=== PATIENT | female | born 1955 | race Caucasian/White ===

== ENCOUNTER 2017-01-19 11:04 | Emergency (ER) | payer OTHER ==
[~2017-01-19] VITALS: Ht 167.6 cm; Wt 51.7 kg
[~2017-01-19 11:04] MED LIST: PRILOSEC20 MG PO; ZOFRAN ODT4 MG PO
[2017-01-19] MEDS ORDERED: PERCOCET 2.5-31 EACH PO (15:54)
[2017-01-23] MEDS ORDERED: CIPRO500 MG PO (15:15)
== END 2017-01-19 16:05 | disposition home or self-care (01) ==
LOC: ED 11:04
DX: B34.9 Viral infection, unspecified (principal); B09 Unspecified viral infection characterized by skin and mucous membrane lesions; F17.200 Nicotine dependence, unspecified, uncomplicated; Z90.710 Acquired absence of both cervix and uterus; Z88.2 Allergy status to sulfonamides; Z88.8 Allergy status to other drugs, medicaments and biological substances; Z88.1 Allergy status to other antibiotic agents; Z88.0 Allergy status to penicillin; Z79.899 Other long term (current) drug therapy
CPT/HCPCS: 70450; 71020; 80053; 81001; 85025; 85651; 96361; 96374; 96375; 99284; J1170; J1200; J1885; J2765; J7030

== ENCOUNTER 2017-01-26 11:55 | Emergency (ER) | payer OTHER ==
[~2017-01-26] VITALS: Ht 167.6 cm; Wt 51.7 kg
[~2017-01-26 11:55] MED LIST changes: +CIPRO500 MG PO; +PERCOCET 2.5-31 EACH PO
== END 2017-01-26 15:35 | disposition short-term general hospital (02) ==
LOC: ED 11:55
PROC: 009U3ZX Drainage of Spinal Canal, Percutaneous Approach, Diagnostic (ICD-10-PCS; principal; 2017-01-26)
DX: R51 Headache (principal); R21 Rash and other nonspecific skin eruption; M79.1 Myalgia; F17.200 Nicotine dependence, unspecified, uncomplicated; Z90.710 Acquired absence of both cervix and uterus; Z88.8 Allergy status to other drugs, medicaments and biological substances; Z88.0 Allergy status to penicillin; Z88.1 Allergy status to other antibiotic agents; Z88.2 Allergy status to sulfonamides; Z79.2 Long term (current) use of antibiotics
CPT/HCPCS: 62270; 80053; 81001; 82945; 83690; 84157; 85025; 85032; 89051; 96361; 96374; 96375; 99285; J1170; J2060; J2250; J2405; J7030

== ENCOUNTER 2019-04-23 07:48 | Day surgery (SDC) | payer OTHER ==
[~2019-04-23] VITALS: Ht 167.6 cm; Wt 47.2 kg
[2019-04-23] MEDS ORDERED: VIT D-3 PO (08:07)
--- NOTE | 2019-04-23 09:47 | NUR ---
PT ALERT, ORIENTED AND SUPPORTED BY HER . PT WAS EMOTIONAL AND SHARED WITH ME SHE HAS A DIFFICULT TIME WAKING UP FOLLOWING SURGERY. EXPLAINED THE ORDER OF EVENTS FOR TODAY, GAVE ENXCOURAGEMENT AND HAD PRAYER WITH PT. WILL FOLLOW NEEDED
--- NOTE | 2019-04-23 09:59 | NUR ---
04/23/19 0959 Catrachita Feliz 0956- PT TO PACU IN LL POSITION EYES CLOSED. AWAKENS TO VOICE AND TACTILE STIMULATION. BREATHING EASY AND UNLABORED. ARRIVED ON 3 L O2 VIA NC SP02 >95%.
--- NOTE | 2019-04-23 11:15 | OR ---
[facility] [address], [place] [address] Signed DATE OF OPERATION: 04/23/2019 SURGEON: Natasha Underwood MD PREOPERATIVE DIAGNOSES: 1. Anorexia, early satiety, heartburn. 2. Weight loss. 3. Diarrhea for two years. 4. Gastric thickening on abdominal ultrasound. POSTOPERATIVE DIAGNOSES: 1. Diffuse moderate gastritis. 2. A small hiatal hernia. 3. 5 mm polyp at 65 cm. 4. Small internal and external hemorrhoids. 5. Minimal sigmoid diverticulosis. 6. Possible mild melanosis coli. PROCEDURES: 1. EGD with CLOtest and biopsies of the duodenum, pyloric bulb, antrum, body, and GE junction. 2. Colonoscopy with hot biopsy and random cold biopsies. ESTIMATED BLOOD LOSS: None. INDICATIONS: Brian is a 63-year-old female, asked to see me for upper and lower endoscopy. She has had a lot of trouble with heartburn, anorexia, early satiety and weight loss. She has had diarrhea for about 2 years. Because of her claustrophobia, she could not undergo her CT scan of the chest, abdomen and pelvis. She had been a long-time smoker and does do some intermittent drinking. She also uses marijuana. Apparently, she had 10 beers just four days ago on Monday. She has been on Prilosec 20 mg p.o. daily. She ended up with an ultrasound of the abdomen, which showed the stomach was quite thickened, but the liver and gallbladder were all fine. She gives no family history of colon cancer or polyps or inflammatory bowel disease. Her erythrocyte sedimentation rate and CRP were normal. Ammonia was just a little high at 44. INR was normal at 0.9. Hemoglobin a little high at 16.8, most likely from her smoking. The alpha fetoprotein was normal at 4.47. She denied history of hepatitis C today. In the office, I gave her pamphlets on both upper and lower endoscopy. We reviewed that together along with the risks Electronically Signed By: NATASHA UNDERWOOD MD 04/23/19 1115 PATIENT NAME: BRIAN WEAVER OPERATIVE REPORT DATE OF : 53 REPORT #: [id number] PHYSICIAN: NATASHA UNDERWOOD MD PCP: RUBEN ODELL MD REPORT IS CONFIDENTIAL AND NOT TO BE RELEASED WITHOUT AUTHORIZATION [facility] [address], [place] [address] Signed including, but not limited to gas, bloating, crampy abdominal pain, bleeding, perforation requiring surgery, and missed diagnosis. She also understands the need for IV conscious sedation. She was a bit anxious about the whole thing. We offered her Xanax, but she had declined. She told us this morning she thought maybe that was the wrong decision. Nevertheless, she did well overall. PROCEDURE NOTE: Brian was taken into the endoscopy suite and placed in the supine semi-recumbent position. The posterior oropharynx was anesthetized with lidocaine spray. A bite block was utilized for the case. She was given a total of 13 mg of Versed and 200 mcg of fentanyl to cover both cases. The adult gastroscope was introduced and advanced out into the third portion of the duodenum under direct visualization of camera without difficulty. We have taken a biopsy of the duodenum due to the history of diarrhea. The pyloric bulb generally was unremarkable, maybe some mild inflammation. Certainly, no ulcers. We went ahead and took a biopsy of the pyloric bulb for pathologic review. However, the stomach showed diffuse [id number]-[id number] inflammatory changes. The proximal half was certainly much worse than the distal half. We went ahead and took biopsies of the antrum for pathologic review as well as CLOtest. We took several biopsies out of the body for pathologic review. Upon retroflexion of scope, we can see that she does have just a small hiatal hernia. The scope was withdrawn up through the area of the GE junction, which was compliant without stricture. We did not see any gastric or esophageal varices. She has [id number] disruption to the Z-line. No Orantes's mucosa. We did not see any specific granulation tissue around the Z-line. We went ahead and took a biopsy along the Z-line for pathologic review. The distal, middle and upper esophagus were unremarkable. The epiglottis, arytenoids and vocal cords were all unremarkable. After this, the gas had been suctioned out and the gastroscope removed. Brian tolerated the procedure quite well. Brian was rotated into the left lateral decubitus position. She was maintained on IV sedation with the Versed and fentanyl. A digital rectal exam was performed. She had some very small external hemorrhoids. She had good sphincter tone. No masses. The adult colonoscope was introduced and advanced under direct visualization of camera into the cecum itself. It took some extra sedation and abdominal compression in order to advance the scope. This is quite common with our patients who were very thin with no intraabdominal adipose tissue. Her prep was quite good. We made several attempts to pass the scope into the terminal ileum without success. We could easily see the appendiceal orifice and the ileocecal valve. We took pictures throughout for photodocumentation. The scope was slowly withdrawn. We took multiple random cold biopsies throughout the colon for the history of diarrhea. There may or may not be some very mild melanosis coli. We did see a few diverticula in the sigmoid colon. They were quite minimal. They were small in size, few in number, and scattered about. She had just a tiny 5 mm polyp at about 60-65 cm. It was easily removed completely with the hot Electronically Signed By: NATASHA UNDERWOOD MD 04/23/19 1115 PATIENT NAME: BRIAN WEAVER OPERATIVE REPORT DATE OF : 53 REPORT #: [id number] PHYSICIAN: NATASHA UNDERWOOD MD PCP: RUBEN ODELL MD REPORT IS CONFIDENTIAL AND NOT TO BE RELEASED WITHOUT AUTHORIZATION [facility] [address], [place] [address] Signed biopsy forceps. After this, the rectum was unremarkable. Upon retroflexion of the scope, she has just some tiny internal hemorrhoid columns. The gas was then suctioned out and the colonoscope removed. Brian tolerated her two procedures quite well. RECOMMENDATIONS: I will see Brian back in my office in 7 to 14 days to review her results. She might consider discontinuing alcohol and smoking marijuana altogether and give her stomach a chance to heal up. Natasha Underwood MD ALB/MODL /[id number] cc: MD Ruben Pruett MD Copies: NATASHA UNDERWOOD MD, MALCOLM MD ~ Electronically Signed By: NATASHA UNDERWOOD MD 11/19/19 1115 PATIENT NAME: BRIAN WEAVER OPERATIVE REPORT DATE OF : 53 REPORT #: [id number] PHYSICIAN: NATASHA UNDERWOOD MD PCP: RUBEN ODELL MD REPORT IS CONFIDENTIAL AND NOT TO BE RELEASED WITHOUT AUTHORIZATION
--- NOTE | 2019-04-23 12:02 | NUR ---
1155 PT TO PACU DROWSY COMPLAINS OF PAIN 9/10 BUT THEN FALLS ASLEEP. AT BEDSIDE. ENCOURAGED TO DEEP BREATH
--- NOTE | 2019-04-23 12:05 | NUR ---
1205 PT PASSING GAS REPORT STOMACH A LITTLE BETTER
--- NOTE | 2019-04-23 12:41 | NUR ---
1235 PT TOOK A SIP OF WATER TOLERATES WELL
--- NOTE | 2019-04-23 12:49 | NUR ---
1250 PT RESTING, AT BEDSIDE. ENCOURAGE PT TO DEEP BREATH. PT REPORTS PAIN AT 5/10 SHE HAS BEEN PASSING GAS.
--- NOTE | 2019-04-23 13:29 | NUR ---
1320 PT EATING CRACKERS AND DRINKING SPRITE TOLERATES WELL. 2/10 PAIN PT BELCHING AND PASSING GAS.
--- NOTE | 2019-04-23 13:51 | NUR ---
1340 PT EAT TURKEY AND CHEESE SANDWICH TOLERATES WELL. REPORTS READINESS TO GO HOME, IV DC'D TIP IN TACT DISCHARGE INSTRUCTIONS GIVEN TO PT AND BOTH VOICED UNDERSTANDING. HELPED PT GET DRESSED AND WHEELED OUT BY RN.
--- NOTE | 2019-04-24 17:05 | PATH ---
[facility] [address] [place], [place] [address] Signed SPECIMEN(S): A DUODENUM 2ND SPECIMEN(S): B DUODENUM BULB SPECIMEN(S): C ANTRUM/PYLORUS SPECIMEN(S): D BODY SPECIMEN(S): E GE JUNCTION SPECIMEN(S): F COLON BIOPSY SPECIMEN(S): G COLON POLYP AT 65 CM SPECIMEN SOURCE: A. DUODENUM 2ND B. DUODENUM BULB C. ANTRUM/PYLORUS D. BODY E. GE JUNCTION F. COLON BIOPSY G. COLON POLYP AT 65 CM CLINICAL HISTORY: Preop DX: Weight loss, diarrhea. Postop DX: Gastritis, small hiatal hernia. MICROSCOPIC DESCRIPTION: Histologic sections of all submitted blocks are examined by light microscopy. These findings, together with the gross examination, support the pathologic diagnosis. C. Sections reveal a biopsy of gastric mucosa. The epithelial surface is intact and had retained mucus-secreting ability. The lamina propria is mildly expanded by a population of plasma cells, lymphocytes and infrequent eosinophils. Goblet cells and a few Paneth cells are present, consistent with complete intestinal metaplasia, negative for dysplasia. No acute inflammatory cells are present. The specimen is negative for bacteria morphologically consistent with Helicobacter on HE stained sections. There is no evidence of malignancy or atypia. E. Sections from the gastroesophageal junction reveal biopsies of both glandular and squamous mucosa. Squamous mucosa present has an unremarkable basal cell layer and does have elongated rete ridges. Glandular mucosa present histologically is consistent with proximal gastric origin. The surface epithelium is intact and has retained mucus-secreting ability. The lamina propria is mildly expanded by a population of plasma cells, lymphocytes and infrequent eosinophils. No acute inflammatory cells or goblet cells are seen. There is PATIENT NAME: BRIAN WEAVER PATHOLOGY DATE OF : 53 REPORT #: [id number] PHYSICIAN: RODRIGO PATHOLOGY PCP: KAVITA ODELL MD REPORT IS CONFIDENTIAL AND NOT TO BE RELEASED WITHOUT AUTHORIZATION [facility] [address] [place], [place] [address] Signed no evidence of malignancy or atypia. FINAL PATHOLOGIC DIAGNOSIS: A. Mucosa, duodenum 2nd portion biopsy: - Duodenal mucosa with normal villous architecture; no microscopic pathologic diagnosis. B. Mucosa, duodenal bulb, biopsy: - Duodenal mucosa with normal villous architecture; no microscopic pathologic diagnosis. C. Mucosa, antrum/pylorus, biopsy: - Mild inactive chronic gastritis with complete intestinal metaplasia, negative for dysplasia. - Negative for the presence of bacteria morphologically consistent with Helicobacter on HE stained sections (see Comment). D. Mucosa, body of stomach, biopsy: - No macroscopic pathologic diagnosis. - Negative for the presence of bacteria morphologically consistent with Helicobacter. E. Mucosa, gastroesophageal junction, biopsy: - Mild chronic gastroesophagitis. F. Mucosa, colon, random biopsy: - No microscopic pathologic diagnosis. G. Mucosa, colon at 65 cm, biopsy: - Surface features suggestive but not entirely diagnostic for hyperplastic polyp (See comment). COMMENT: C -- the patient has a ELIZABETH test performed and reported as negative in the [facility] lab data base. D -- Multiple levels over three slides are examined. No adenomatous change or full thickness hyperplastic change is seen. GROSS DESCRIPTION: A. The specimen is received in a formalin-filled specimen container labeled "DM, #1." A single pink biopsy is 0.3 cm and entirely submitted in cassette (A1). B. The specimen is received in a formalin-filled specimen container labeled "DM, #2." A single pink biopsy is 0.3 cm and entirely submitted in cassette (B1). C. The specimen is received in a formalin-filled specimen container labeled "DM, #3." A single porter biopsy is 0.2 cm and entirely submitted in cassette (C1). PATIENT NAME: BRIAN WEAVER PATHOLOGY DATE OF : 53 REPORT #: [id number] PHYSICIAN: RODRIGO BULLARD PCP: KAVITA ODELL MD REPORT IS CONFIDENTIAL AND NOT TO BE RELEASED WITHOUT AUTHORIZATION [facility] [address] [place], [place] [address] Signed D. The specimen is received in a formalin-filled specimen container labeled "DM, #4." Three porter biopsies are 0.3, 0.3, and 0.5 cm, and entirely submitted in cassette (D1). E. The specimen is received in a formalin-filled specimen container labeled "DM, #5." A single porter biopsy is 0.2 cm and entirely submitted in cassette (E1). F. The specimen is received in a formalin-filled specimen container labeled "DM, #6." Three porter biopsies are each 0.3 cm and entirely submitted in cassette (F1). G. The specimen is received in a formalin-filled specimen container labeled "DM, #7." Two porter biopsies are each 0.4 cm and entirely submitted in cassette (G1). GW (under the direct supervision of a pathologist) The Gross Description was prepared using a voice recognition system. The report was reviewed for accuracy; however, sound-alike word errors, addition and/or deletions may occur. If there is any question about this report, please contact Client Services. PERFORMING LABORATORY: The technical component was performed by [facility], [address] [place] [id number] (Career Transition Specialist: Charo England MD; CLIA# [id number]). [facility], [address] [place] [address] (Career Transition Specialist: Vasiliy Parmar MD; CLIA# [id number]). Diagnostician: Vasiliy Parmar MD Pathologist Electronically Signed 04/24/2019 Copies: ~ PATIENT NAME: BRIAN WEAVER PATHOLOGY DATE OF : 53 REPORT #: [id number] PHYSICIAN: RODRIGO PATHOLOGY PCP: KAVITA ODELL MD REPORT IS CONFIDENTIAL AND NOT TO BE RELEASED WITHOUT AUTHORIZATION
== END 2019-04-23 14:05 | disposition home or self-care (01) ==
LOC: DS 07:48 → OPS 07:48 → DS 09:00 → OPS 14:05
PROVIDERS: Colon & Rectal Surgery
PROC: 0DB68ZX Excision of Stomach, Via Natural or Artificial Opening Endoscopic, Diagnostic (ICD-10-PCS; 2019-04-23)
PROC: 0DB48ZX Excision of Esophagogastric Junction, Via Natural or Artificial Opening Endoscopic, Diagnostic (ICD-10-PCS; 2019-04-23)
PROC: 0DBE8ZZ Excision of Large Intestine, Via Natural or Artificial Opening Endoscopic (ICD-10-PCS; 2019-04-23)
PROC: 0DB98ZX Excision of Duodenum, Via Natural or Artificial Opening Endoscopic, Diagnostic (ICD-10-PCS; principal; 2019-04-23 09:00)
PROC: 0DB78ZX Excision of Stomach, Pylorus, Via Natural or Artificial Opening Endoscopic, Diagnostic (ICD-10-PCS; 2019-04-23 09:00)
DX: K63.5 Polyp of colon (principal); K64.4 Residual hemorrhoidal skin tags; K64.8 Other hemorrhoids; K57.30 Diverticulosis of large intestine without perforation or abscess without bleeding; K29.50 Unspecified chronic gastritis without bleeding; K44.9 Diaphragmatic hernia without obstruction or gangrene; K20.9 Esophagitis, unspecified; J44.9 Chronic obstructive pulmonary disease, unspecified; E55.9 Vitamin D deficiency, unspecified; M85.80 Other specified disorders of bone density and structure, unspecified site; M19.90 Unspecified osteoarthritis, unspecified site; F17.210 Nicotine dependence, cigarettes, uncomplicated; Z88.1 Allergy status to other antibiotic agents; Z88.6 Allergy status to analgesic agent
CPT/HCPCS: 86677; 88305; 99153; G0500; J2250; J2405; J2550; J3010

== ENCOUNTER 2019-09-20 11:23 | Observation (INO) | payer MEDICARE, OTHER ==
[~2019-09-20] VITALS: Ht 167.6 cm; Wt 46.3 kg
[~2019-09-20 11:23] MED LIST changes: +VIT D-3 PO
--- NOTE | 2019-09-20 13:45 | NUR ---
64YR OLD WOMAN DIRECT ADMIT TO ROOM 109 ACCOMPANIED BY HER , PT IS ALERT, ORIENTED, ANXIOUS BUT PLEASANT, ORIENTED TO ROOM AND CALL LIGHT, ORDERS NOTED.
[2019-09-20] MEDS ORDERED: VITAMIN D21250 MCG PO (13:55)
--- NOTE | 2019-09-20 14:33 | NUR ---
PT ASKED IF SHE COULD HAVE SOMETHING TO EAT, DR UNDERWOOD SAID PT CAN HAVE REGULAR DIET UNTIL 1800 THAN CLEAR UNTIL MIDNIGHT AND WILL BE NPO. EKG DONE BY RT.
--- NOTE | 2019-09-20 18:07 | NUR ---
ATE 100% OF DINNER, RESTING ON BED WATCHING TV, IN ROOM, DENIES ANY NEEDS.
--- NOTE | 2019-09-20 19:10 | NUR ---
IN ROOM FOR REPORT, PT IS AWAKE SITTING IN CHAIR. SHE DENIES NEEDS AT THIS TIME. CALL LIGHT IS CLOSE.
--- NOTE | 2019-09-20 20:00 | NUR ---
IN ROOM TO ASSESS PT AND START PREPROCEDURE CHECKLIST. PT DENIES PAIN AND NAUSEA AT THIS TIME. IS PRESENT IN THE ROOM WHICH HELPS PT WITH ANXIETY. SHE DENIES THE NEED FOR ANY PRN MEDICATIONS AT THIS TIME. IV WAS STARTED BY RN DURING DAYSHIFT AND IS INFUSING FINE. PT DENIES NEEDS AT THIS TIME. CALL LIGHT IS CLOSE.
--- NOTE | 2019-09-20 20:42 | NUR ---
Recieved call from Dr. Crawford, wanting to review lab work for patient. Informed of lab values, recieved telephone order, read back for Magnesium Sulfate 2 gm IV X1 now. Order placed on patient chart and patient's nurse informed of new order.
--- NOTE | 2019-09-20 21:14 | NUR ---
pts VS and I&Os complete. two warm blankets given, nothing further needed at this time.
--- NOTE | 2019-09-20 22:00 | NUR ---
IV MAG IS COMPLETE, PT DENIES NEEDS AT THIS TIME. DRLR IS INFUSING. CALL LIGHT IS CLOSE.
--- NOTE | 2019-09-21 00:15 | NUR ---
ADMINISTERED O.5MG ATIVAN IV FOR ANXIETY ABOUT SURGERY TOMORROW. PT IS NPO AT THIS TIME AND DENIES PAIN/NAUSEA. IV IS INFUSING FINE. CALL LIGHT IS CLOSE.
--- NOTE | 2019-09-21 00:46 | NUR ---
VITALS AND I&OS DONE AND CHARTED. BEDSIDE TABLE AND CALL LIGHT IN REACH. PT NEEDS NOTHING AT THIS TIME.
--- NOTE | 2019-09-21 02:40 | NUR ---
PT IS RESTING WITH EYES CLOSED, RR IS EVEN AND NOLABORED. CALL LIGHT IS CLOSE. IV IS INFUSING FINE.
--- NOTE | 2019-09-21 04:10 | NUR ---
PT IS RESTING WITH EYES CLOSED, RR ARE EVEN AND NONLABORED. IV IS INFUSING FINE. CALL LIGHT IS CLOSE.
--- NOTE | 2019-09-21 06:16 | NUR ---
PT REPORTED PAIN 10/10 AT TIMES THROUGH THE NIGHT. TORADOL AND TYLENOL GIVEN TOGETHER BROUGHT HER PAIN TO 5/10. SHE HAS R ARM ELEVATED ON PILLOW WITH ICE PRN. DRESSING CHANGES DAILY, WITH CHANGE DUE THIS MORNING. SHE HAS LR INFUSING AT 75MLS/HR. PT USES CALL LIGHT APPROPRIATELY. URINE OUTPUT IS GOOD, ATTENDS ARE IN PLACE. 1PA TO BSC.
--- NOTE | 2019-09-21 06:53 | NUR ---
VITALS AND I&OS DONE AND CHARTED. GAVE PT SURGERY WIPES AND A CLEAN GOWN. EMPTIED GARBAGES. BEDSIDE TABLE AND CALL LIGHT IN REACH. SHE DID IN FACT WIPE DOWN WITH THE WIPES AND PUT ON A CLEAN GOWN. PT NEEDS NOTHING MORE AT THIS TIME.
--- NOTE | 2019-09-21 06:58 | NUR ---
SURGERY WIPE DOWN COMPLETE, PT IS IN A NEW GOWN, WANTS TO KEEP HER SOCKS ON FOR NOW D/T COLD FEET. LR BAG FOR SURGERY IS AT BEDSIDE. PT DENIES NEEDS AT THIS TIME. CALL LIGHT IS CLOSE.
--- NOTE | 2019-09-21 08:27 | NUR ---
PT TO OR AT THIS TIME. WILL REMAIN IN ROOM. DENIES ANY NEEDS.
--- NOTE | 2019-09-21 08:35 | CONS ---
[facility] [address] [place], [place] [address] Signed DATE OF CONSULTATION: 09/20/2019 CHIEF COMPLAINT: Failure to thrive. HISTORY OF PRESENT ILLNESS: Brian is a 64-year-old female with significant past medical history as outlined below. She has been in evaluation for early satiety with anorexia and nausea and weight loss and failure to thrive. She actually had an ultrasound in March 2019, which showed an unremarkable gallbladder and liver, but the gastric wall was quite thickened. In comparison, she had an ultrasound of her abdomen back in 2012 that was unremarkable. Consequently, the stomach finding was new. She had undergone both upper and lower endoscopy. The biopsies were not particularly concerning either some metaplasia of the stomach. Her H pylori was negative. The colonoscopy showed an unremarkable biopsy and some very minimal diverticulosis. She was referred for endoscopic ultrasound to better evaluate the stomach. The pancreas showed some atrophy, but deep biopsies of stomach wall were unremarkable. She was to continue her GI workup, but this was all in [place]. She decided not to drive all the way back down to [place]. There was some concern on a HIDA scan that she had absolutely no ejection fraction to her gallbladder. I described that to her and to Brian, they do not specific recall the HIDA scan. I was not able to find it specifically in our electronic health records. Because of her history of smoking, she also had a CT scan of the chest, abdomen and pelvis on July 17, 2019. There was some mild destruction to the lungs consistent with COPD and a very large stomach, but no other specific findings. She also had a chest x-ray back in 2016 that showed the mild hyperinflation of the lungs. She just had a mammogram in June of this year and it was unremarkable. She has been following along with her gluten settling tender including a significant amount of blood work as well. Nothing specific has been uncovered. She one time was at 130 pounds. She is down to 103 pounds. She is to the point where her bony prominences are painful and it is even difficult to set for any length of time. She continues to have trouble with anorexia and early satiety. However, when she eats she said she does not feel like the food stays in her stomach for any significant length of time. In fact, she is not more than hour or so she is quite hungry again. Consequently, she is not specifically describing gastroparesis. 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 There was concern about ongoing weight loss and failure to thrive. I was contacted earlier today while I was operating to admit her as a general surgeon on-call with consideration of a cholecystectomy to see if we can relieve her of her symptoms. I had gone back to my office to review her records and I contacted Brian and her over the phone. We have admitted her directly to the hospital currently. She is waiting to have her IV started and blood work drawn. In the meantime, an EKG was done and it does show normal sinus rhythm. PAST MEDICAL HISTORY: Electronically Signed By: NATASHA UNDERWOOD MD 09/21/19 0835 PATIENT NAME: BRIAN WEAVER CONSULTATION DATE OF : 53 REPORT #: [id number] PHYSICIAN: NATASHA UNDERWOOD MD PCP: RUBEN MURRIETA MD REPORT IS CONFIDENTIAL AND NOT TO BE RELEASED WITHOUT AUTHORIZATION [address] [address] Signed Benign hematuria, pancreatic atrophy, minimal diverticulosis, small hiatal hernia with acid reflux, vitamin D deficiency, slightly elevated blood sugars, chronic cough, bronchitis from smoking, osteoarthritis, osteopenia, endometriosis, syphilis, COPD, hepatitis C virus, hyperuricemia, elevated ammonia levels, headaches, pain in her neck and shoulder and anxiety along with some tinnitus. PAST SURGICAL HISTORY: A full hysterectomy with Dr. Bach in for the endometriosis. Her right 4th digit on her hand was pinned from a fracture. She had a previous bilateral tubal ligation. She has had her tonsils removed. She had a temporal artery biopsy in 2016. She has had upper and lower endoscopy in April 2019 and then endoscopic ultrasound of her stomach within the last several months. SOCIAL HISTORY: She continues to smoke. She drinks a little. She said back in 80, she did every drug available. She still has a little marijuana once in a while. She is to [place] Weaver at [phone][address] Dr. Ruben Murrieta is her primary care provider. She does not drive currently. Dr. Delfino Barnes is her metal sprayer machined parts. Dr. Vernon Brown performed her endoscopic ultrasound. FAMILY HISTORY: Dad in a motor vehicle accident age 20. Mom had Parkinson disease and uterine cancer. Her sisters all had atherosclerotic coronary vascular disease. REVIEW OF SYSTEMS: She talked about her glasses and she said she had echocardiogram and stress test with Dr. Clark in 2014 and it all came out fine. ALLERGIES: Erythromycin, Septra, penicillin, cephalexin and environmental allergies. MEDICATIONS: Prilosec and multivitamin. She stopped her vitamin D when the prescription ran out. PHYSICAL EXAMINATION: VITAL SIGNS: Her blood pressure is 113/84, heart rate 83, respiratory rate 18, temperature is 98.1. She is 93% on room air. She is 5 feet 6 inches tall at 46 kg. GENERAL: Brian is a 64-year-old female sitting on the bedside, doing her best to eat a turkey sandwich. She has taken a few bites and already said she feels full. Her [place] is with her. She is certainly cachectic and looks older than her stated age. It is clear she has been a long-time smoker. LUNGS: She has mild bilateral rhonchi, very mildly distant breath sounds. HEART: Regular rate and rhythm without murmur. ABDOMEN: Soft, flat, nontender. No hepatosplenomegaly. Electronically Signed By: NATASHA UNDERWOOD MD 09/21/19 0835 PATIENT NAME: BRIAN WEAVER CONSULTATION DATE OF : 53 REPORT #: [id number] PHYSICIAN: NATASHA UNDERWOOD MD PCP: RUBEN MURRIETA MD REPORT IS CONFIDENTIAL AND NOT TO BE RELEASED WITHOUT AUTHORIZATION [facility] [address] [place], [place] [address] Signed LABORATORY DATA: Pending EKG shows normal sinus rhythm. RADIOGRAPHIC STUDIES: I reviewed the CT scan of the chest, abdomen and pelvis from July 17, 2019 with mild destruction to the lungs and a very large stomach. She had an ultrasound of the abdomen on 04/04/2019 with gastric wall thickening, but the gallbladder and liver were unremarkable. Mammogram from June 14, 2018 was unremarkable. The chest x-ray back from 2016 showed mild hyperinflation of the lungs. The ultrasound from 2012 of her abdomen was unremarkable. ASSESSMENT AND PLAN: Brian is a 64-year-old female, who presents with what appears to be classic biliary colic and chronic cholecystitis. She certainly is suffering with early satiety, anorexia, nausea, intermittent vomiting, weight loss and failure to thrive. She has tried everything to gain weight and it has been uneventful. Her radiographic studies and her evaluation so far been uneventful with respect to an etiology for weight loss of in the gallbladder. Consequently, I was asked to admit her as a general surgeon on-call for consideration of her cholecystectomy. I gave Brian and her brochure today on the gallbladder. We looked at that carefully together. They understand the location and function of the gallbladder with respect to the liver, the stomach and the pancreas. We have reviewed the expected intraop and postop course. There is risk of surgery including, but not limited to bleeding, infection, scarring, change in contour of the skin, damage to bowel, damage to main bile duct, incisional hernias and other unforeseen comorbidities. There was also a chance that may or may not relieve her symptoms. She may need to pursue a gastric emptying scan if her symptoms are not resolved following the cholecystectomy. I reviewed all this with Brian and her in detail, they have expressed understanding, wished to proceed. In the meantime, we are going to hydrate her this afternoon. We will check her labs including her electrolytes and plan on doing her surgery in the morning. They have expressed understanding and agreed above plan. Natasha Underwood MD ALB/MODL /[id number] Electronically Signed By: NATASHA UNDERWOOD MD 09/21/19 0835 PATIENT NAME: BRIAN WEAVER CONSULTATION DATE OF : 53 REPORT #: [id number] PHYSICIAN: NATASHA UNDERWOOD MD PCP: RUBEN MURRIETA MD REPORT IS CONFIDENTIAL AND NOT TO BE RELEASED WITHOUT AUTHORIZATION [facility] [address] [place], [place] [address] Signed cc: MD Ruben Pruett MD Sidharth Bhardwaj, MD [place] Copies: NATASHA UNDERWOOD MD, MALCOLM MD ~ Electronically Signed By: NATASHA UNDERWOOD MD 09/21/19 0835 PATIENT NAME: BRIAN WEAVER CONSULTATION DATE OF : 53 REPORT #: [id number] PHYSICIAN: NATASHA UNDERWOOD MD PCP: RUBEN MURRIETA MD REPORT IS CONFIDENTIAL AND NOT TO BE RELEASED WITHOUT AUTHORIZATION
--- NOTE | 2019-09-21 10:00 | NUR ---
no vitals done, patient in surgery. waiting in room. no needs at this time.
--- NOTE | 2019-09-21 11:21 | NUR ---
09/21/19 1121 Sheets,Sanam 1113 PT WOKE TO TACTILE STIMULI AND IS REORIENTED TO PACU. RESP EVEN AND UNALBORED. PT REPORTS NO PAIN OR NAUSEA. VSS. PT FALLS BACK TO SLEEP EASILY. 1115 O2 REMOVED.
--- NOTE | 2019-09-21 11:45 | NUR ---
PT RETURNED TO ROOM FROM RECOVERY IN OWN BED, OPENS EYES TO NAME, FOLLOWS SIMPLE INSTRUCTIONS, DENIES, NAUSEA, OR PAIN, 4 SCOPE SITES COVERED WITH DRY GAUZE, SCANT AMOUNT RED SHADOWING ON DRSGS. DENIES NEED TO VOID, ORDERS NOTED, AT BEDSIDE, ENCOURAGED PT TO DEEP BREATHE AND INSTRUCTION REINFORCED FOR SPLINTING ABD, O2 AT 2L/NC. CALL LIGHT IN EASY REACH.
--- NOTE | 2019-09-21 12:00 | NUR ---
PT AWAKE, SIPPING ICE WATER AND REQUESTED YUMIKO PATTERSON, SITTING AT BEDSIDE.
--- NOTE | 2019-09-21 12:10 | NUR ---
ZOFRAN GIVEN FOR C/O NAUSEA AFTER TRYING TO EAT YUMIKO CRACKERS. HOB ELEVATED, AT BEDSIDE.
[2019-09-21] MEDS ORDERED: PERCOCET 5-3251 EACH PO (12:26)
--- NOTE | 2019-09-21 12:56 | NUR ---
PT AGAIN TRYING TO VOMIT, ZOFRAN DIDN'T HELP MUCH, PHENERGAN 12.5MG GIVEN DILUTED SLOWLY, REPOSITIONED WITH PILLOW TO SUPPORT ABD, NO CHANGE IN SHADOWING ON GAUZE ANTONIA.
--- NOTE | 2019-09-21 13:09 | NUR ---
PT REPORTS NAUSEA MUCH IMPROVED, RESTING WITH EYES CLOSED, EATING LUNCH. WILL WAIT A BIT BEFORE TRYING TO EAT AGAIN.
--- NOTE | 2019-09-21 15:13 | NUR ---
PT IS AWAKE EATING YUMIKO CRACKERS, REPORTS NAUSEA MUCH IMPROVED, WILL TRY PO PAIN MEDICATION NOW. PERCOCET GIVEN.
--- NOTE | 2019-09-21 15:46 | NUR ---
SBA UP TO BSC TO VOID 400ML YELLOW URINE, CONT. TO DENY NAUSEA, TOLERATING PERCOCET WELL. ASKING IF SHE CAN GO HOME. DISCHARGE INSTRUCTION GIVEN TO PT AND , THEY BOTH VERBALIZE UNDERSTANDING OF MEDICATIONS, SIDE EFFECTS, FOLLOW UP APPOINTMENT, SX TO REPORT, DENY FURTHER QUESTIONS, SL DC'D. PHARMACY WAS IN AND SPOKE WITH THEM, TAKE HOME PACK OF PERCOCET RECIEVED. WILL ENTRY REP PERSCRIPTION TOMORROW AT [facility].
--- NOTE | 2019-09-21 17:36 | EKG ---
[facility] [address] [facility] [place], [place] [address] Signed Normal sinus rhythm Normal ECG No previous ECGs available Confirmed by NOEL RON DO ([id number]) on 09/21/2019 5:36:39 PM Electronically Signed By: NOEL RON DO 09/21/19 1736 PATIENT NAME: BRIAN WEAVER Electrocardiogram DATE OF : 53 PHYSICIAN: NOEL RON DO REPORT #: [id number] REPORT IS CONFIDENTIAL AND NOT TO BE RELEASED WITHOUT AUTHORIZATION
--- NOTE | 2019-09-22 19:49 | OR ---
[facility] [address] [place], [place] [address] Signed DATE OF OPERATION: 09/21/2019 SURGEON: Natasha Underwood MD PREOPERATIVE DIAGNOSES: 1. Chronic cholecystitis. 2. Biliary colic. 3. Long redundant stomach. POSTOPERATIVE DIAGNOSES: 1. Chronic cholecystitis. 2. Biliary colic. 3. Long redundant stomach. PROCEDURE: Laparoscopic cholecystectomy with intraoperative cholangiogram. ESTIMATED BLOOD LOSS: None. FINDINGS: Brian indeed has a very long redundant stomach. Her liver and stomach are low in the abdomen. With our camera just above the umbilicus, we had positioned the camera transversely to the long axis of her abdomen just to visualize the gallbladder. We did see some adhesions high in the left upper quadrant near the diaphragm and some in the right lower quadrant. She has a well-healed infraumbilical trocar site area. She was having pain in the left mid quadrant concerning for spigelian hernia. We visualized that area directly with our 5 mm scope. There is no spigelian hernia. However, the midportion of her stomach as it curves around is directly underneath that area. She talks about that area of swelling and she is able to push it back down. I suspect this is her stomach. The intraoperative cholangiogram showed the cystic duct going into the right hepatic duct, no other findings. The gallbladder was mildly chronically inflamed, but no significant issues in that regard other than the stomach adherent to the area of the neck of the gallbladder, this was easily taken down. INDICATIONS: Brian is a 64-year-old female, who for several months now has been having trouble with nausea, anorexia, and significant weight loss. She dropped from 130 pounds down to 103 pounds. All her bony prominences are protruding and is actually difficult for to set in any one place for any significant length of time. She has had significant evaluation as Electronically Signed By: NATASHA UNDERWOOD MD 09/22/191948 PATIENT NAME: BRIAN WEAVER OPERATIVE REPORT DATE OF : 53 REPORT #: [id number] PHYSICIAN: NATASHA UNDERWOOD MD PCP: KAVITA ODELL MD REPORT IS CONFIDENTIAL AND NOT TO BE RELEASED WITHOUT AUTHORIZATION [facility] [address] [place], [place] [address] Signed detailed in the History and Physical. So far, everything has been negative. She has continued with her symptoms and weight loss. Her primary care provider called me yesterday while I was operating and asked that I consider removing her gallbladder despite the coronavirus pandemic. I had called Brian and her at home. I had reviewed her records at my office. We admitted her late in the afternoon to the hospital on Monday. We ross her labs and found everything was fine except for low magnesium, that was corrected. We let her have a regular diet with a few bites of turkey sandwich. Once again, she was having early satiety and feeling nauseated. I was able to review all this with Brian and her . He corroborates her story. I had brought a brochure over from the office to give to Brian and her regarding the gallbladder. We reviewed the location and function of the gallbladder with respect to the liver, the stomach, the pancreas, and the duodenum. We had reviewed all her previous studies as well. She does have a very long redundant stomach and there is some concern she might need a solid phase gastric emptying scan. We did review the expected intraop and postop course. There is risk to the surgery including, but not limited to bleeding, infection, scarring, change in contour of the skin, damage to bowel, damage to main bile duct, incisional hernias, and other unforeseen comorbidities. There is also the risk that we removing the gallbladder, it does not relieve her symptoms. In that regard, she will need ongoing evaluation. They had expressed understanding and wished to proceed. PROCEDURE NOTE: Brian was taken into our operating room and placed in supine position under general endotracheal tube anesthesia. She was given preoperative antibiotics with Levaquin and Flagyl. She was already on subcutaneous Lovenox. SCDs were in place. She was prepped and draped in the usual sterile fashion. We repalpated the area in the left mid quadrant along with the area of the left spigelian hernia. There was no evidence of any palpable concern. Our trocars were then placed in the usual positions under direct visualization of the camera without difficulty. We indeed found that she has a very long redundant stomach. Her stomach and her liver lie low in the abdomen. We had to hold our 0-degree camera transversely to the long axis of the stomach in order to visualize the front edge of the liver along with the gallbladder. Consequently, our trocars were placed in the lower abdomen in usual. However, her liver looks quite healthy, it was quite pliable. We could easily elevate the gallbladder into the right upper quadrant. We found that part of the duodenum and stomach was adherent to the neck of the gallbladder. It came off quite easily with blunt dissection and gentle cautery. We also saw adhesions near the diaphragm in the left upper quadrant. She had some adhesions in the right lower quadrant as well with omentum up to the abdominal wall. No evidence of any bilateral inguinal hernias. Later, we did pass our 5 mm scope into the right upper quadrant trocar site, and we looked across very carefully in the left side of the abdomen. She has a previous infraumbilical trocar incision, it is well healed. There is no evidence of a spigelian hernia. We found that the midportion of her stomach Electronically Signed By: NATASHA UNDERWOOD MD 09/22/191948 PATIENT NAME: BRIAN WEAVER OPERATIVE REPORT DATE OF : 53 REPORT #: [id number] PHYSICIAN: NATASHA UNDERWOOD MD PCP: KAVITA ODELL MD REPORT IS CONFIDENTIAL AND NOT TO BE RELEASED WITHOUT AUTHORIZATION [facility] [address] [place], [place] [address] Signed is directly underneath the area that seems to cause her pain and swelling. We were able to turn the camera and look on the left lateral side of the falciform ligament, no issues in that area either. After this, we proceeded to dissect out the triangle of Calot and the cystic artery. The cystic artery was clipped and divided. The intraoperative cholangiocatheter was inserted into the cystic duct. The intraoperative cholangiogram was then performed. It appears that the cystic duct is emptying into the right hepatic duct. Otherwise, no issues with the cholangiogram. The cystic duct stump was secured with a PDS Endoloop and 2 clips were placed across the cystic duct stump to umu its location. After this, the gallbladder was carefully removed from the gallbladder fossa with the help of the cautery and placed into an EndoCatch bag. The right upper quadrant was then irrigated and suctioned out until clear. We used our laparoscopic suturing device to pass 0-Vicryl suture on either side of the fascia of the subxiphoid trocar site. This was tied down to close this fascia primarily. After this, all the gas was allowed to escape and all trocars removed along with the gallbladder. The gallbladder was opened on the back table by our circulating nurse for photodocumentation. It had typical chronic mild inflammatory changes. We then closed the fascia of the supraumbilical trocar site with interrupted [id number] and simple 0-Vicryl sutures. Local anesthetic was injected into all trocar sites. Each trocar site was irrigated and suctioned out until clear. The skin and dermis of each trocar site were then closed with interrupted 3-0 subcuticular Monocryl sutures. Dry gauze and tape were applied at all incisions. Brian was awakened from her anesthesia, extubated in the OR, and taken to the recovery room in stable condition. Natasha Underwood MD ALB/MODL /[id number] cc: MD Delfino Marie M.D. [place] Natasha Underwood MD Electronically Signed By: NATASHA UNDERWOOD MD 09/22/19 1949 PATIENT NAME: BRIAN WEAVER OPERATIVE REPORT DATE OF : 53 REPORT #: [id number] PHYSICIAN: NATASHA UNDERWOOD MD PCP: KAVITA ODELL MD REPORT IS CONFIDENTIAL AND NOT TO BE RELEASED WITHOUT AUTHORIZATION [address] [address] Signed Copies: KAVITA ODELL MD, ANDREW L MD ~ Electronically Signed By: NATASHA UNDERWOOD MD 09/22/19 1949 PATIENT NAME: BRIAN WEAVER OPERATIVE REPORT DATE OF : 53 REPORT #: [id number] PHYSICIAN: NATASHA UNDERWOOD MD PCP: KAVITA ODELL MD REPORT IS CONFIDENTIAL AND NOT TO BE RELEASED WITHOUT AUTHORIZATION
--- NOTE | 2019-09-24 13:34 | PATH ---
[facility] [address] [place], [place] [address] Signed SPECIMEN(S): A GALLBLADDER SPECIMEN SOURCE: A. GALLBLADDER CLINICAL HISTORY: Acute cholecystitis, biliary colic, failure to thrive. FINAL PATHOLOGIC DIAGNOSIS: Gallbladder, cholecystectomy: - Chronic cholecystitis. NAL:cml:C2NR MICROSCOPIC EXAMINATION: Histologic sections of all submitted blocks are examined by light microscopy. These findings, together with the gross examination, support the pathologic diagnosis. GROSS DESCRIPTION: The specimen, labeled "DM, A.," and designated on the requisition "gallbladder," is received in formalin and consists of Specimen: Previously opened gallbladder. Dimensions: 7.0 x 4.3 x 0.7 cm. Serosa: Violaceous and ragged. Cystic Duct: Unobstructed. Calculi: Absent. Mucosa: Green-brown with bright green dimpled areas. Wall thickness: Up to 0.3 cm. Lymph node: No pericystic lymph nodes are grossly identified. Additional: None. Director Database sections are submitted in cassette (A1). AT (under the direct supervision of a pathologist) The Gross Description was prepared using a voice recognition system. The report was reviewed for accuracy; however, sound-alike word errors, addition and/or deletions may occur. If there is any question about this report, please contact Client Services. PERFORMING LABORATORY: The technical component was performed by [facility], [address] [place] [id number] (Field Service Engineer: Charo England MD; CLIA# [id number]). Professional interpretation was performed by PATIENT NAME: BRIAN WEAVER PATHOLOGY DATE OF : 53 REPORT #: [id number] PHYSICIAN: [facility] PCP: KAVITA ODELL MD REPORT IS CONFIDENTIAL AND NOT TO BE RELEASED WITHOUT AUTHORIZATION [facility] [address] [place], [place] [address] Signed [facility], [facility], [address] [facility] [address], [place] [address] (CLIA# [id number]). Diagnostician: Flor Butts MD Pathologist Electronically Signed 09/24/2019 Copies: ~ PATIENT NAME: BRIAN WEAVER PATHOLOGY DATE OF : 53 REPORT #: [id number] PHYSICIAN: [facility] PCP: KAVITA ODELL MD REPORT IS CONFIDENTIAL AND NOT TO BE RELEASED WITHOUT AUTHORIZATION
== END 2019-09-21 16:10 | disposition home or self-care (01) ==
LOC: MS 11:23
PROVIDERS: ADMIT Colon & Rectal Surgery
PROC: BF13YZZ Fluoroscopy of Gallbladder and Bile Ducts using Other Contrast (ICD-10-PCS; 2019-09-21)
PROC: 0FT44ZZ Resection of Gallbladder, Percutaneous Endoscopic Approach (ICD-10-PCS; principal; 2019-09-21 09:00)
DX: K80.44 Calculus of bile duct with chronic cholecystitis without obstruction (principal); K43.9 Ventral hernia without obstruction or gangrene; K31.89 Other diseases of stomach and duodenum; J44.9 Chronic obstructive pulmonary disease, unspecified; R62.7 Adult failure to thrive; F17.200 Nicotine dependence, unspecified, uncomplicated; Z88.0 Allergy status to penicillin; Z88.1 Allergy status to other antibiotic agents
CPT/HCPCS: 00790; 74300; 80053; 82378; 83690; 83735; 84100; 84134; 85025; 93005; 93010; 94760; 96361; 96365; 96372; 96375; 99406; G0378; G0379; J1100; J1170; J1650; J1885; J1956; J2060; J2270; J2405; J2550; J2704; J3010; J3475; J7121; Q9967

== ENCOUNTER 2022-01-12 14:14 | Inpatient (IN) | payer MEDICARE, OTHER ==
[~2022-01-12] VITALS: Ht 167.6 cm; Wt 47.9 kg
[~2022-01-12 14:14] MED LIST changes: +PERCOCET 5-3251 EACH PO; +VITAMIN D21250 MCG PO
--- OUTSIDE RECORDS SUMMARY | 2022-01-12 14:20 | XMS ---
PreManage Notification: BRIAN WEAVER Security Spreader Events No recent Security Events currently on file CRITERIA MET - Group Notification CARE PROVIDERS There are no care providers on record at this time. Lauren has no Care Guidelines for this patient. Micah VISIT COUNT (12 MO.) 1 NIKA Leonard TOTAL 1 NOTE: Visits indicate total known visits. ED/C VISIT TRACKING (12 MO.) 01/12/2022 14:15 NIKA Bowles [place] TYPE: Emergency COMPLAINT: - FLU SYMPTOMS, DIFFICULTY BREATHING, VOMITING INPATIENT VISIT TRACKING (12 MO.) No inpatient visits to display in this time frame [email or web address]
--- NOTE | 2022-01-12 18:49 | NUR ---
REPORT RECEIVED FROM ER AND PT. ARRIVED VIA STRETCHER. ON 2L O2 NC. HR WAS 136 AFTER AMBULATING TO BED. AND BP WAS 78/43. ORTHOSTATIC VITALS TAKEN PER ORDER AND WERE NEGATIVE. PT. BROUGHT SANDWICH BOX. IVF ADMIN.
--- NOTE | 2022-01-12 19:58 | NUR ---
scheduled evening meds given per request of primary rn clara, see emar. PT declined nicotine patch, education provided. vss, i&o's complete. iv bolus also infusing as directed, iv sites x2 wnl. fresh water provided to pt and soda to , call light in reach. no additional needs, will cotninue to monitor.
--- NOTE | 2022-01-12 22:08 | NUR ---
call light answered, vs collected. sbp a little low at 95. pt reports feeling dizzy at times when resting in bed, not new. steady on feet when ambulating to bsc. daughter in room with pt. no additional needs, call light in reach.
--- NOTE | 2022-01-13 00:30 | NUR ---
ROUNDED ON pt AND COLLECTED VS. VSS, pt SWEATY TO FOREHEAD, AFEBRILE. COOL RAG APPLIED. pt LASO UP STAND PIVOT TO BSC, STEADY ON FEET. 500MLS OUTPUT NOTED. PRIMARY RN LEANA MADE AWARE. CALL LIGHT IN REACH.
--- NOTE | 2022-01-13 02:34 | NUR ---
PT WAS FEELING SOB. SHE WAS LYING FLAT IN BED. HOB WAS ELEVATED. PT'S OXYGEN SAT WAS 95 % ON 2 L PER NC. SHE DID NOTICE AN IMPROVEMENT IN HER BREATHING WITH HOB ELEVATED.
--- NOTE | 2022-01-13 04:27 | NUR ---
PT IS ASLEEP WITH HOB ELEVATED. DAUGHTER IS ROOMING IN WITH PT TONIGHT.
--- NOTE | 2022-01-13 06:35 | NUR ---
THIS RN DISCUSSED WITH DR HALL VIA PHONE REGARDING TRENDING BP'S FOR THE SHIFT AND UO FOR SHIFT, TELEPHONE ORDER READ BACK TO TITRATE IV FLUIDS (LR) FROM 75MLS/HR TO 40MLS/HR. TITRATION DONE AT THIS TIME, PRIMARY RN LEANA MALHOTRA.
--- NOTE | 2022-01-13 06:53 | NUR ---
PT HAS RECEIVED NEB TREATMENTS. SHE IS MAINTAINED ON O2 AT 2L PER NC. LUNGS ARE COARSE AND CRACKLY. PRODUCTIVE COUGH WITHLARGE AMOUNT THICK YELLOW SPUTUM. PT HAS VOIDED 1100 OF URINE, IVF TURNEED DOWN TO 40 MLS/HR.
--- NOTE | 2022-01-13 07:15 | NUR ---
REPORT RECIEVED FROM NIGHT RN - PT AWAKE AND RESTING IN BED WATCHING TV WITH AT BEDSIDE. PT DENIES NEEDS AT THIS TIME, NC IN PLACE.
[2022-01-13] MEDS ORDERED: PRILOSEC OTC20 MG PO (08:59)
--- NOTE | 2022-01-13 09:00 | NUR ---
MED REC COMPLETE
--- NOTE | 2022-01-13 09:14 | NUR ---
Spoke with Pt. and spouse. She states she lives in [place] in a house with 6 steps and a basement. States for the first time ever, she was not able to navigate steps into the house due to sob. She does not use the basement as spouse does all the laundry. She does not use any DME at this time. Currently on 2 l of 02. If needed on DC would like to use [employer] as this is what her neighbor uses. Pt plans on dc to home with spouse when cleared medically. Pt would like a call to Dr. Murrieta's office as she is unsure if he remains her pcp, states she hasn't seen him in over 2-3 years. Called and pt was seen last year and remains his pt. Scheduled for FU for next week 01-21-22 at 2pm.
--- NOTE | 2022-01-13 09:28 | NUR ---
RN IN ROOM TO ASSESS PT - SCHEDULED MEDICATIONS ADMINISTERED. PT REFUESES NICOTINE PATCH AT THIS TIME, STATES SHE DOES NOT HAVE CRAVINGS. PT LUNGS COURSE THROUGHOUT - COUGH PRODUCTIVE AND SPASM IN NATURE. NEB TX IN PROGRESS, 2L SP02 92%. PT REPORTS STERNUM PAIN WITH COUGHING, YELLOW THICK SPUTUM PRODUCED. IV SITE X2 FLUSHED AND TOLERATING IVF WITHOUT DIFFICULTY. AT BEDSIDE. DENIES QUETIONS OR CONCERN WITH PLAN OF CARE. PT HOPEFUL TO HAVE NAP SOON. CALL LIGHT IN REACH.
--- NOTE | 2022-01-13 11:18 | NUR ---
RN ROUNDING ON PT - RESTING IN BED WITH EYE CLOSED HOB SLIGHTLY ELEVATED, NC IN PLACE, RR EVEN AND UNLABORED. CALL LIGHT IN REACH.
--- NOTE | 2022-01-13 13:11 | EKG ---
[facility] [address] [facility] [place] [address] Signed Sinus tachycardia Right atrial enlargement Nonspecific ST abnormality Abnormal ECG When compared with ECG of 20-SEP-2019 14:26, Vent. rate has increased BY [address] now depressed in Inferior leads Confirmed by VLADISLAV HALL MD ([id number]) on 01/13/2022 1:11:13 PM Electronically Signed By: VLADISLAV HALL MD 01/13/22 1311 PATIENT NAME: BRIAN WEAVER Electrocardiogram DATE OF : 53 PHYSICIAN: VLADISLAV HALL MD REPORT #: [id number] REPORT IS CONFIDENTIAL AND NOT TO BE RELEASED WITHOUT AUTHORIZATION
--- NOTE | 2022-01-13 13:27 | NUR ---
RN IN ROOM TO ASSESS PT AND ADMINISTER SCHEDULED MEDICATIONS - PT SITTING UP IN BED RESTING AND VISITING WITH FAMILY UPON ENTRY. 2L NC IN PLACE WITH SPO2 >95%. COURSE LUNG SOUNDS THROUGHOUT, PT STILL COUGHING UP THICK YELLOW SPUTUM. IV SITE TOLERATING ABX INFUSION WITHOUT DIFFICULTY. PT STATES SHE WAS ABLE TO EAT HALF SANDWICH FOR LUNCH WITHOUT NAUSEA BUT FEELS FULL QUICKLY. ENCOURAGED CLEAR LIQ ENSURES - PT STATES SHE WOULD LIKE TO TRY THEM WHILE HERE. PT DENIES PAIN WITH URINATION, STATES SHE IS HAVING SOME DIZZINESS WITH AMBULATION TO BATHROOM - KNOWS TO CALL FOR ASSISTANCE. CALL LIGHT IN REACH.
--- NOTE | 2022-01-13 15:45 | NUR ---
RN ROUNDING ON PT - PROVIDED MILLER ENSURE AND SODA PER PT REQUEST. UP TO BSC WITH IMPROVED STEADINESS ON FEET. REQUESTS TO TAKE WALK LATER WITH IN HALLWAYS, 02 EXTENSION PROVIDED.
--- NOTE | 2022-01-13 16:56 | NUR ---
RN ROUNDING ON PT - PROVIDED CUP FOR SPUTUM, EDUCATED ON COLLECTION. AT BEDSIDE. PT DENIES NEEDS AT THIS TIME.
--- NOTE | 2022-01-13 18:00 | NUR ---
PT AMBULATING IN HALLWAY WITH . PT DENIES DIZZINESS. NC IN PLACE WITH 2L 02. SPUTUM SAMPLE OBTAINED.
--- NOTE | 2022-01-13 19:45 | NUR ---
IN TO ASSIT PT WITH O2 QUESTION, PT WAS ON PORTABLE OXY FOR RECENT WALK IN HALLWAY, PT ASK TO HAVE O2 SWAPPED BACK TO THE WALL, NO FURTHER NEEDS AT THIS TIME
--- NOTE | 2022-01-13 21:11 | NUR ---
PT ON 2LNC, LUNGS WITH EXP WHEEZING, DRY HACKY, COUGH PRESENT.COOPERATIVE SL LFA, IVF INFUSING RFA, AMBULATORY SBA, VOIDING DARK YELLOW URINE. NO OTHER C/O. FLUIDS AND CALL LIGHT AT HANDS REACH
--- NOTE | 2022-01-13 22:45 | NUR ---
PER RN, ROUNDING ON PT, PT ASLEEP ON BACK, RR OBSERVATED
--- NOTE | 2022-01-13 23:59 | NUR ---
Pt resting, O2 2LNC, no distress, call light and fluids at hands reach, IVF infusing
--- NOTE | 2022-01-14 03:06 | NUR ---
pt c/o being diaphoretic, gown and bedding changed, c/o rib/chest area pain from coughing. O2 2LNC, sligh sob with exertion noted. hacky moist productive cough noted. lungs coarse with exp wheezing and dim at baes. back to bed, tolerated well, medicated with Tylenol 500mg po. had been up to br too. voided QS, family in room.
--- NOTE | 2022-01-14 04:42 | NUR ---
verified with osvaldo from lab that sputum sample was collected and sent.
--- NOTE | 2022-01-14 05:12 | NUR ---
SPOKE TO ADILSON FROM LAB REGARDING ORDER FOR REPIRATORY VIRAL PANEL BY PCR. PER ADILSON, COLLECTION STILL NEEDED. PER ADILSON, SWAB USED CAN BE THE SAME THE ONES FOR THE COVID KITS. INSTEAD OF ARUP, IT WILL SENT TO LAB [facility], TEST # [id number]. PER ADILSON, NO NEED TO REORDER/CHANGE ORIGINAL ORDER. RT NOEL TO COLLECT SWAB.
--- NOTE | 2022-01-14 05:18 | NUR ---
pt on 2lnc, lungs with ins wheezing,coarase and dim. dry to moist hacky productive cough present. received neb tx x1, nasal swab for misc respiratory test done by RT. cooperative, sputum was sent earlier in am by am shift. pt alert and oriented, coop. up to br w sba, sob with exertion noted. was very daphoretic when awake, skin dried. clean gown and bed changed. went back to bed, slept well, has used cornet as per RT instructions. tolerating liquids well. no emesis. was medicated with tylenol per general/rib area pain. IVF infusing w/o problems. uses call light, family rooming in
--- NOTE | 2022-01-14 05:19 | NUR ---
PT. VITALS AND I/OS CHARTED. ROOM TIDIED, TRASH CANS EMPTIED. CALL LIGHT LEFT WITHIN REACH. NO OTHER IMMEDIATE NEEDS AT THIS TIME.
--- NOTE | 2022-01-14 08:17 | NUR ---
TO PT ROOM FOR MORNING ASSESSMENT AND MEDICATION ADMINISTRATION. PT IS A/O, RESPIRATIONS EVEN AND REGULAR. SOME PRODUCTIVE COUGHING. NEBULIZER TREATMENT DUE ATT. PT STATES SHE IS SLOWLY GETTING APPETITE BACK. REFUSES NICODERM PATCH. CALL LIGHT WITHIN REACH.
--- NOTE | 2022-01-14 09:40 | NUR ---
PATIENT RESTING IN BED AFTER USING THE USING THE RESTROOM. NO OTHER NEEDS AT THIS TIME, CALL LIGHT IN REACH.
--- NOTE | 2022-01-14 09:47 | NUR ---
TO PT ROOM TO CHECK ON PT. IV FLUID BAG REPLACED. PT CONTINUES TO HAVE PRODUCTIVE COUGH WITH DECREASED APPETITE.
--- NOTE | 2022-01-14 12:24 | NUR ---
TO PT ROOM FOR MEDICATION ADMINISTRATION. FAMILY AT BEDSIDE. PT DENIES NEEDS OR COMPLAINTS ATT.
--- NOTE | 2022-01-14 13:30 | NUR ---
PATIENT LYING BED VISITING WITH FAMILY. VITALS AND I/O'S COMPLETED. NO OTHER NEEDS AT THIS TIME. CALL LIGHT WITHIN REACH.
--- NOTE | 2022-01-14 14:18 | NUR ---
PT COMPLETED SHOWER. BED CHANGE COMPLETED. IV FLUIDS RUNNING. RESPIRATORY THERAPY AT BEDSIDE.
--- NOTE | 2022-01-14 18:05 | NUR ---
TO PT ROOM TO CHECK ON PT. PT A/O, SITTING IN CHAIR. NO CONCERNS OR COMPLAINTS ATT.
--- NOTE | 2022-01-14 19:45 | NUR ---
IN TO GET VITALS
--- NOTE | 2022-01-14 20:09 | NUR ---
WALKED ON ROOM AIR, SATS 88% NO SOB. BACK TO ROOM 96% ON 1LNC, BOWEL REGIMEN STARTED. COMFORTABLE, WATCHING TV, IVF FLUID STARTING. FAMILY IN ROOM
--- NOTE | 2022-01-14 22:17 | NUR ---
ROUNDING PER RN, PT RESTING IN BED
--- NOTE | 2022-01-14 22:49 | NUR ---
RESTING, ON 1LNC, NO DISTRESS, EYES CLOSED, CALL LIGHT AND FLUIDSA T BEDSIDE. FAMILY ROOMING IN
--- NOTE | 2022-01-15 00:25 | NUR ---
PT RESTING, EYES CLOSED, 1LNC, NO DISTRESS, CALL LIGHT AND FLUIDS AT BEDSIDE FAMILY MEMBER ROOMING IN
--- NOTE | 2022-01-15 01:55 | NUR ---
pt awake, used call light c/o being diaphoretic, gown and bedding changed, skin dired.up to br, voiding clear yellow urine QS. on 1LNC, lungs coarse and dim . Rt called for feliz arrington tx, pt sob with exertion, back to bed. tolerating sips of fluids well. no c/o pain. warm blanket given on request
--- NOTE | 2022-01-15 05:01 | NUR ---
Pt was on 2L at begining of shift, now on 0.5L. walked up and down the hallways on room air, w spot checks cpox dropped to 88%, tolerated very well, back to room and placed on 1L NC and sats went up to 97% inmediately, mild sob on return, recuperated easily. Lungs with crackles and dim at bases, moist productive hacky cough present. has slept off and on. uses BSC, voiding QS. tolerating liquids well, cont to have niht sweats. bed and gown changed. call light and fluids at bedside, pleasant and cooperative. uses call light. No c/o pain this shift
--- NOTE | 2022-01-15 08:08 | NUR ---
PATIENT IN BED VISITING WITH DAUGHTER. DAUGHTER TOLD THIS DRUM BUILDER THAT SHE WILL HELP HER WITH AM CARE WHEN SHE GETS THE MEAL. CALL LIGHT WITHIN REACH.
--- NOTE | 2022-01-15 10:00 | NUR ---
PATIENT IN BED RESTING, FOR OTHER NEEDS AT THIS TIME. VITALS AND I/O'S COMPLETED. CALL LIGHT WITHIN REACH.
--- NOTE | 2022-01-15 10:15 | NUR ---
PT SLEEPING ATT. RESPIRATIONS EVEN AND REGULAR. IV FLUIDS RUNNING. CALL LIGHT WITHIN REACH.
--- NOTE | 2022-01-15 11:47 | NUR ---
ANTIBIOTICS RUNNING. PT IS A/O, RESPIRATIONS EVEN AND REGULAR. STATES SHE WOULD LIKE TO WALK WHEN HER ARRIVES.
--- NOTE | 2022-01-15 13:20 | NUR ---
TO PT ROOM FOR ASSESSEMENT. PT STATES SHE IS FEELING TIRED. CONTINUES TO HAVE POOR APPETITE. CALL LIGHT WITHIN REACH.
--- NOTE | 2022-01-15 13:59 | NUR ---
PATIENT IN BED RESTING. VITALS AND I/O'S COMPLETED. NO OTHER NEEDS AT THIS TIME. CALL LIGHT WITHIN REACH.
--- NOTE | 2022-01-15 14:58 | NUR ---
PT IS SITTING AT EOB. A/O, RESPIRATIONS EVEN AND REGULAR. OXYGEN IS OFF, SPO2 94%. STATES DOCTOR TOLD HER POSSIBLE DISCHARGE TOMORROW.
--- NOTE | 2022-01-15 17:00 | NUR ---
PT A/O, AMBULATING IN ROOM. NO COMPLAINTS ATT. DOES NOT WISH TO HAVE ADDITIONAL MEDICATION FOR HEADACHE. WILL ARRIVE THIS EVENING AND PLANS TO WALK WITH HIM.
--- NOTE | 2022-01-15 17:46 | NUR ---
PATIENT SITTING ON SIDE OF BED, HAVING DINNER WITH . VITALS AND I/O'S COMPLETE. NO OTHER NEEDS AT THIS TIME. CALL LIGHT WITHIN REACH.
--- NOTE | 2022-01-15 18:21 | NUR ---
PT SPO2 88% ON RA WHILE AMBULATING IN ROOM. PT DENIES FEELING SOB OR LIGHT HEADED. WOULD LIKE TO CHANGE BEFORE PUTTING OXYGEN BACK ON.
--- NOTE | 2022-01-15 20:52 | NUR ---
Pt on room air, moit productive cough present. lungs fine crackles at bases prior to getting neb tx, lung dim t/o at this time after neb tx. Alert and oriented, walked to br, voided, no bm. back to bed, mild sob with exertion on return. recuperatd easily. Coop wtih assessment. On room air, dim lungs, hacky prod cough present off and on. SL LFA patent. abd soft HEA, moves all extremities, independent in room, uses BSC at HS. family rooming in, call light at hands reach, tolerating fluids
--- NOTE | 2022-01-15 23:57 | NUR ---
Up to bsc, voided, backa to bed, moist non prod cough. RT notified that she want a neb tx, slight sob with exertion noted, on room air, spot sats 90%
--- NOTE | 2022-01-16 01:38 | NUR ---
On room air, resting, no distress, turns and repositions self in bed. call light and fluids at hands reach. family rooming in
--- NOTE | 2022-01-16 05:47 | NUR ---
Pt on room air, lung dim t/o moist productive cough present. up to br and walked hallways, light sob noted at that time, spot checks wnl, uses BSC at HS. Received murphy tx, effective. Pt encouraged to use cornet. independent in room SL otto. Tolerating liquids well, no emesis, uses call light, Pt waiting to be dc today. Family rooming in
--- NOTE | 2022-01-16 06:54 | NUR ---
uP TO EDGE OF BED DRINKING COFFEE, WAS MEDICATED EARLIER WITH ZOFRAN PER C/O UPSET STOMACH. NO FURTHER C/O AT THIST OSWALD, MED EFFECTIVE. STATED SHE FEELS MUCH BETTER, WALKED TO BR, NO SOB NOTED. VISITING WITH FAMILY, NO C/O PAIN
--- NOTE | 2022-01-16 07:29 | NUR ---
PT ASSESSMENT COMPLETE. PT SITTING UP IN BED WITH FAMILY AT BEDSIDE. PT IS A/O, RESPIRATIONS EVEN AND REGULAR. LUNGS DIMINISHED THROUGHOUT. SPO2 94%. DENIES NEEDS OR COMPLAINTS ATT.
[2022-01-16] MEDS ORDERED: LEVOFLOXACIN500 MG PO (09:01)
[2022-01-16] MEDS ORDERED: PREDNISONE10 MG PO (09:02)
--- NOTE | 2022-01-16 10:58 | NUR ---
PATIENT AMBULATING AROUND IN ROOM INDEPENDENTLY. VITALS AND I&O'S CHARTED. CALL LIGHT IN REACH. NO FURTHER NEEDS AT THIS TIME.
--- NOTE | 2022-01-16 11:09 | NUR ---
TO PT ROOM TO DISCUSS DISCHARGE INFORMATION. PT RECENTLY AMBULATED IN THE [facility] WITH RT. PT IS A/O, RESPIRATIONS EVEN AND REGULAR. PT IS SITTING IN CHAIR. CALL LIGHT WITHIN REACH.
--- NOTE | 2022-01-16 11:37 | NUR ---
PT SITTING IN CHAIR. IV ABX STARTED. NO SOB ATT. RESPIRATIONS EVEN AND REGULAR. CALL LIGHT WITHIN REACH.
--- NOTE | 2022-01-16 13:00 | NUR ---
IV ABX COMPLETED. PT AMBULATED IN ROOM. NO CONCERNS OR COMPLAINTS ATT.
--- NOTE | 2022-01-16 14:15 | NUR ---
PT DISCHARGED TO HOME. IV REMOVED, CATHETER INTACT. TRANSPORTED VIA NURSING STAFF TO VEHICLE WITH .
== END 2022-01-16 14:15 | disposition home or self-care (01) | DRG 193 ==
LOC: ED 14:14 → MS 17:20
PROVIDERS: ADMIT Internal Medicine; ATTEND Internal Medicine
DX: J12.9 Viral pneumonia, unspecified (principal); J96.01 Acute respiratory failure with hypoxia; J44.0 Chronic obstructive pulmonary disease with (acute) lower respiratory infection; J44.1 Chronic obstructive pulmonary disease with (acute) exacerbation; J15.9 Unspecified bacterial pneumonia; E86.0 Dehydration; Z88.2 Allergy status to sulfonamides; Z88.0 Allergy status to penicillin; Z88.1 Allergy status to other antibiotic agents; F17.210 Nicotine dependence, cigarettes, uncomplicated; Z20.822 Contact with and (suspected) exposure to COVID-19
CPT/HCPCS: 36415; 51701; 71045; 80048; 80053; 81001; 83605; 85025; 87040; 87070; 87205; 87502; 93005; 93010; 94640; 94667; 94668; 94760; 94761; 99285-25; A9270; C9803; J1100; J1650; J1956; J2405; J2920; J7030; J7121; J7512; U0003

== ENCOUNTER 2022-03-18 12:40 | Emergency (ER) | payer MEDICARE, OTHER ==
[~2022-03-18] VITALS: Ht 167.6 cm; Wt 44.1 kg
[~2022-03-18 12:40] MED LIST changes: +LEVOFLOXACIN500 MG PO; +PREDNISONE10 MG PO; +PRILOSEC OTC20 MG PO
--- OUTSIDE RECORDS SUMMARY | 2022-03-18 12:49 | XMS ---
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 Lauren has no Care Guidelines for this patient. Micah VISIT COUNT (12 MO.) 2 [facility] Leonard TOTAL 2 NOTE: Visits indicate total known visits. ED/C VISIT TRACKING (12 MO.) 03/18/2022 12:40 [facility] TYPE: Emergency COMPLAINT: - HEAD PAIN 01/12/2022 14:15 [facility] TYPE: Emergency COMPLAINT: - FLU SYMPTOMS, DIFFICULTY BREATHING, VOMITING INPATIENT VISIT TRACKING (12 MO.) 01/12/2022 17:20 [facility] TYPE: Medical Surgical COMPLAINT: - ACUTE RESPIRATORY FAILURE DIAGNOSES: - Viral pneumonia, unspecified - Chronic obstructive pulmonary disease with (acute) exacerbation - Viral pneumonia, unspecified - Contact with and (suspected) exposure to COVID-19 - Allergy status to sulfonamides - Unspecified bacterial pneumonia - Chronic obstructive pulmonary disease with (acute) exacerbation - Allergy status to penicillin - Dehydration - Contact with and (suspected) exposure to COVID-19 - Chronic obstructive pulmonary disease with (acute) lower respiratory infection - Allergy status to other antibiotic agents - Nicotine dependence, cigarettes, uncomplicated - Unspecified bacterial pneumonia - Allergy status to sulfonamides - Acute respiratory failure with hypoxia - Allergy status to other antibiotic agents - Chronic obstructive pulmonary disease with (acute) lower respiratory infection - Allergy status to penicillin - Nicotine dependence, cigarettes, uncomplicated - Dehydration [email or web address]
[2022-03-18] MEDS ORDERED: TRELEGY ELLIPT1 EAC1 IH (14:17)
[2022-03-18] MEDS ORDERED: DOXYCYCLINE HY100 MG PO (15:15)
[2022-03-18] MEDS ORDERED: FAMCICLOVIR500 MG PO (15:15)
== END 2022-03-18 15:24 | disposition home or self-care (01) ==
LOC: ED 12:40
DX: R21 Rash and other nonspecific skin eruption (principal); F17.200 Nicotine dependence, unspecified, uncomplicated; Z88.2 Allergy status to sulfonamides; Z88.8 Allergy status to other drugs, medicaments and biological substances; Z88.1 Allergy status to other antibiotic agents; Z88.0 Allergy status to penicillin; Z79.899 Other long term (current) drug therapy
CPT/HCPCS: 99282; A9270

== ENCOUNTER 2023-07-22 08:48 | Inpatient (IN) | payer MEDICARE, OTHER ==
[~2023-07-22] VITALS: Ht 167.6 cm; Wt 41.1 kg
[~2023-07-22 08:48] MED LIST changes: +DOXYCYCLINE HY100 MG PO; +FAMCICLOVIR500 MG PO; +TRELEGY ELLIPT1 EAC1 IH
--- OUTSIDE RECORDS SUMMARY | 2023-07-22 08:58 | XMS ---
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 EDanielle VISIT COUNT (12 MO.) 1 NIK[facility] Pedro Daja TOTAL 1 NOTE: Visits indicate total known visits. ED/UCC VISIT TRACKING (12 MO.) 07/22/2023 08:[address] [facility] TYPE: Emergency COMPLAINT: - N/V, UNABLE TO EAT, L SIDE PAIN, DIZZY, WEAK INPATIENT VISIT TRACKING (12 MO.) No inpatient visits to display in this time frame [email or web address]
[2023-07-22] MEDS ORDERED: ondansetron HCL 4 MG/2 ML VIAL IV PRN ×2 (09:15→14:30)
[2023-07-22] MEDS ORDERED: SODIUM CHLORIDE 0.9% 1,000 ML IV ONE (09:15)
[2023-07-22 09:17] LABS: BASOPHILS 0.2 % (0-2); EOSINOPHILS 0.5 % (0-6); HEMATOCRIT 43.5 % (35.0-50.0); HEMOGLOBIN 15.2 g/dL (12.0-18.0); LYMPHOCYTES 10.3 % (24-44); MCH 32.8 (27-36); MCV 93.6 fl (81-99); MONOCYTES 8.9 % (0-12); NEUTROPHILS 80.1 % (39-80); PLATELET COUNT 286 K/uL (140-440); RBC 4.64 M/ul (4.3-5.7); RDW 12.7 (10.5-15.0)
[2023-07-22 09:32] LABS: ALBUMIN 2.8 g/dL (3.4-5.0); ALBUMIN/GLOBULIN RATIO 0.64 (1.1-2.4); ANION GAP 9.5 (7-21); BILIRUBIN, TOTAL 0.7 ng/dL (0.2-1.0); BUN/CREATININE RATIO 12.5 (6.0-28.6); CALCIUM 9.8 mg/dL (8.5-10.1); CREATININE, SERUM 0.64 mg/dL (0.55-1.02); POTASSIUM 2.5 mmol/L (3.5-5.1); PROTEIN, TOTAL 7.2 g/dL (6.4-8.2)
[2023-07-22 10:03] LABS: BILIRUBIN, URINE NEGATIVE (negative); BLOOD/HGB, URINE SMALL (Negative); KETONE, URINE NEGATIVE (Negative); LEUK ESTERASE, URINE NEGATIVE (negative); NITRITE, URINE NEGATIVE (negative)
[2023-07-22 10:10] LABS: INFLUENZA B NAA NEGATIVE (NEGATIVE); RESPIRATORY SYNCYTIAL VIR NAA NEGATIVE (NEGATIVE)
[2023-07-22] MEDS ORDERED: POTASSIUM CHLORIDE 10 MEQ TABCR PO ONE (10:15)
[2023-07-22 10:26] LABS: EPITHELIAL CELLS, URINE SQUAMOUS 1+ /lpf (0-1+); REFLEX CULTURE, URINE No (No); WHITE BLOOD CELLS, URINE 0-1 /HPF (0-5)
[2023-07-22] MEDS ORDERED: POTASSIUM CHLORIDE 10 MEQ/100 ML BAG IV ONE (11:00)
[2023-07-22] MEDS ORDERED: SODIUM CHLORIDE 0.9% 100 ML IV SCH (11:45)
[2023-07-22] MEDS ORDERED: HYDROmorphone HCL 1 MG/ML SYR IV ONE ×2 (14:00→14:15)
[2023-07-22] MEDS ORDERED: KETOROLAC TROMETHAMINE 30 MG/ML VIAL IV PRN (14:30)
[2023-07-22] MEDS ORDERED: LACTATED RINGER'S 1,000 ML IV SCH (14:30)
[2023-07-22] MEDS ORDERED: levoFLOXacin 500 MG/100 ML BAG IV SCH (14:31)
[2023-07-22] MEDS ORDERED: NICOTINE 14 MG/24 HR 1 EA TDSY TD SCH (14:33)
[2023-07-22] MEDS ORDERED: FAMOTIDINE 20 MG/ 2 ML VIAL IV SCH (14:33)
[2023-07-22] MEDS ORDERED: MAGNESIUM SULFATE 2 GM/50 ML BAG IV ONE (14:45)
[2023-07-22 14:52] VITALS: BP 105/67
[2023-07-22] MEDS ORDERED: droPERidol 5 MG/2 ML VIAL IV PRN (15:45)
[2023-07-22] MEDS ORDERED: POTASSIUM CHLORIDE 20 MEQ,LIDOCAINE HCL 1% 20 MG in DEXTROSE 5% 250 ML IV SCH ×2 (16:00→18:00)
[2023-07-22 17:37] VITALS: BP 109/60
[2023-07-22] MEDS ORDERED: ALBUTEROL SULFATE 0.083% 3 ML VIAL INH PRN (17:45)
[2023-07-22 18:15] LABS: ANION GAP 9.3 (7-21); BUN/CREATININE RATIO 10.52 (6.0-28.6); CALCIUM 8.8 mg/dL (8.5-10.1); CREATININE, SERUM 0.57 mg/dL (0.55-1.02); POTASSIUM 3.3 mmol/L (3.5-5.1)
[2023-07-22 21:05] VITALS: BP 107/62
[2023-07-22 21:46] VITALS: BP 107/62
[2023-07-23] VITALS (10 sets, daily range): BP systolic 104–130; BP diastolic 61–84
[2023-07-23 05:20] LABS: BASOPHILS 0.5 % (0-2); EOSINOPHILS 1.1 % (0-6); HEMATOCRIT 39.3 % (35.0-50.0); HEMOGLOBIN 13.5 g/dL (12.0-18.0); LYMPHOCYTES 12.3 % (24-44); MCH 32.6 (27-36); MCHC 34.3 g/dl (30-36); MCV 95.1 fl (81-99); NEUTROPHILS 74.1 % (39-80); PLATELET COUNT 256 K/uL (140-440); RBC 4.13 M/ul (4.3-5.7); RDW 12.7 (10.5-15.0)
[2023-07-23 05:33] LABS: ANION GAP 7.9 (7-21); BUN/CREATININE RATIO 8.62 (6.0-28.6); CALCIUM 9.1 mg/dL (8.5-10.1); CREATININE, SERUM 0.58 mg/dL (0.55-1.02); POTASSIUM 3.9 mmol/L (3.5-5.1)
--- NOTE | 2023-07-23 09:12 | HP ---
[facility] [address], [place] [address] Signed ADMISSION DATE: 07/22/2023 REASON FOR ADMISSION: Left small perisigmoidal abscess and retroperitoneal inflammation. HISTORY: This 68-year-old white woman is a patient of Dr. Franco Montez and has longstanding cachexia and inanition. She is said to have been thoroughly evaluated in multiple institutions including locally for this problem. She additionally has long-standing COPD and persistent smoking. She presented to the emergency room at approximately 9:00 a.m. today accompanied by her for generalized illness of nausea and vomiting and weakness. She has had no real appetite and has poorly eaten over the past week. This is not particularly new for her, however. She does have some abdominal pain, which has been chronic and only slightly exacerbated recently. She is said to have had multiple evaluations at [facility] without a firm diagnosis as to the cause of her general inanition. PAST SURGICAL HISTORY: Does include cholecystectomy, hysterectomy and tonsillectomy in the distant past. Evaluation in the emergency room by Dr. Fine included clinical examination as well as vital signs assessment. A CBC, which showed a white count elevated at 14.2 with normal hematocrit of 43.5. A CT scan was performed showing mucosal hyperenhancement of the rectosigmoid and distal colon with some left-sided retroperitoneal gas. A small amount of pneumoperitoneum and rim enhancing fluid collection consistent with abscess. It is about 2.6 cm in diameter. Consideration of this represents perforated diverticulitis was made. There is diffuse mild dilation of small bowel suggestive of ileus related to inflammation. REVIEW OF SYSTEMS: She currently is uncomfortable, but not severely painful and certainly without sign of cardiovascular compromise currently. The patient has had no hematemesis or blood per rectum. She has had colonoscopy in the past by Dr. Arpit Crawford. MEDICATIONS: Her current medications include omeprazole for gastroesophageal reflux. ALLERGIES: She has allergies to Bactrim (sulfa medications), , penicillin and erythromycin base. Electronically Signed By: MARCELLA NI MD 07/23/23 0912 PATIENT NAME: BRIAN WEAVER HISTORY AND PHYSICAL DATE OF : 53 REPORT #: [id number] PHYSICIAN: MARCELLA NI MD PCP: FRANCO MONTEZ DO REPORT IS CONFIDENTIAL AND NOT TO BE RELEASED WITHOUT AUTHORIZATION [facility] [address], [place] [address] Signed MEDICATIONS: She does smoke persistently, uses alcohol once a week and does smoke marijuana. PHYSICAL EXAMINATION: GENERAL: This is a cachectic white woman, who does not look particularly septic at this time. Her accompanies her. VITAL SIGNS: Temperature is 99.0, pulse is 80, blood pressure 100/73, with O2 saturation 95% on 2 L nasal cannula oxygen. NECK: Trachea is midline. Neck is very thin. CHEST: Shows distant breath sounds. HEART: Regular. ABDOMEN: Scaphoid, flat and nondistended. There is minimal if any tenderness in the left lower quadrant. EXTREMITIES: Lower extremities show no sign of edema. LABORATORY STUDIES: Show white count of 14.2, hematocrit 43.5, platelets 286,000. Chem profile shows sodium 131, potassium 2.5, chloride 91, CO2 of 33, creatinine 0.64, glucose 112, calcium 9.8. Liver enzymes low normal. Bilirubin 0.7, AST 13, ALT 12, alkaline phosphatase 93, albumin is 2.8, globulin 4.4. Urinalysis shows 4-6 red cells per high-power field, 0-1 white cells per high-power field. Serology shows no evidence of coronavirus or influenza or RSV. ASSESSMENT: The patient has longstanding cachexia and inanition, now exacerbated by vague abdominal pain in the left lower quadrant and CT scan demonstrating a perisigmoidal fluid collection consistent with abscess and some retroperitoneal inflammatory change and possible free air. This would be concordant to perforated diverticulitis. She shows surprisingly little as regards septic picture currently. She does have a very low potassium of 2.5, which is likely related to her generalized poor oral intake. Admission to the hospital at this time is appropriate for ongoing potassium resuscitation, intravenous antibiotics and medical optimization. Likely, she will need at least laparoscopy with mobilization of the colon and drainage of what may be a perforated diverticulitis. I will review what records are available to us to better assess what evaluation she has had to diagnose her underlying frailty and inanition. Given her ongoing smoking and likely atherosclerosis, assessment of her visceral arteries will be undertaken upon review of her CT scan and I will assess if there has been any assessment for celiac disease (most likely there would have been already). On the short-term management of her peridiverticular problem is most important though her other underlying ongoing Electronically Signed By: MARCELLA NI MD 07/23/23 0912 PATIENT NAME: BRIAN WEAVER HISTORY AND PHYSICAL DATE OF : 53 REPORT #: [id number] PHYSICIAN: MARCELLA NI MD PCP: FRANCO MONTEZ DO REPORT IS CONFIDENTIAL AND NOT TO BE RELEASED WITHOUT AUTHORIZATION [address] [address] Signed debility warrants the review as well. Discussed all this with the patient and her , understand and agree to proceed as I have described. MD MEAGHAN To/ADOREL /[id number] cc: Dr. Babatunde Orlandoony PELON Montez DO Copies: FRANCO MONTEZ DO ~ Electronically Signed By: MARCELLA NI MD 07/23/23911 PATIENT NAME: BRIAN WEAVER HISTORY AND PHYSICAL DATE OF : 53 REPORT #: [id number] PHYSICIAN: MARCELLA NI MD PCP: FRANCO MONTEZ DO REPORT IS CONFIDENTIAL AND NOT TO BE RELEASED WITHOUT AUTHORIZATION
[2023-07-23] MEDS ORDERED: ondansetron HCL 4 MG/2 ML VIAL ONE (10:00)
[2023-07-23] MEDS ORDERED: SUGAMMADEX SODIUM 200 MG/2 ML ML ONE (10:00)
[2023-07-23] MEDS ORDERED: SUCCINYLCHOLINE IN 0.9% NACL 200 MG/10 ML SYRINGE ONE (10:00)
[2023-07-23] MEDS ORDERED: ROCURONIUM BROMIDE 50 MG/5 ML SYR ONE (10:00)
[2023-07-23] MEDS ORDERED: KETOROLAC TROMETHAMINE 30 MG/ML VIAL ONE (10:00)
[2023-07-23] MEDS ORDERED: propofoL 200 MG/20 ML VIAL ONE ×2 (10:00→11:02)
[2023-07-23] MEDS ORDERED: METOCLOPRAMIDE HCL 10 MG/2 ML SDV ONE (10:00)
[2023-07-23] MEDS ORDERED: LACTATED RINGER'S 1,000 ML IV ONE (10:00)
[2023-07-23] MEDS ORDERED: fentaNYL citrate 100 MCG/2 ML VIAL ONE (10:00)
[2023-07-23] MEDS ORDERED: DEXAMETHASONE SOD PHOS 4 MG/ML VIAL ONE (10:00)
[2023-07-23] MEDS ORDERED: MIDAZOLAM HCL 2 MG/2 ML VIAL ONE (10:01)
[2023-07-23] MEDS ORDERED: FAMOTIDINE 20 MG/ 2 ML VIAL ONE (10:01)
[2023-07-23] MEDS ORDERED: LIDOCAINE HCL 4% 5 ML AMP ONE (10:01)
[2023-07-23] MEDS ORDERED: HYDROCORTISONE SOD SUCCINATE 100 MG/2 ML VIAL ONE (11:46)
[2023-07-23] MEDS ORDERED: DIGOXIN 500 MCG/2 ML AMP ONE (11:46)
[2023-07-23] MEDS ORDERED: MORPHINE SULFATE 10 MG/ML VIAL ONE (11:56)
[2023-07-23] MEDS ORDERED: fentaNYL citrate 100 MCG/2 ML VIAL IV PRN (12:15)
[2023-07-23] MEDS ORDERED: NALOXONE HCL 0.4 MG SYR IV PRN (12:15)
[2023-07-23] MEDS ORDERED: ondansetron HCL 4 MG/2 ML VIAL IV PRN (12:15)
[2023-07-23] MEDS ORDERED: IBLOOD GLUCOSE TEST STRIP 1 EA TEST VI PRN (12:15)
[2023-07-23] MEDS ORDERED: droPERidol 5 MG/2 ML VIAL IV PRN (12:15)
[2023-07-23] MEDS ORDERED: PROCHLORPERAZINE EDISYLATE 10 MG/2 ML VIAL IV PRN (12:15)
[2023-07-23] MEDS ORDERED: METOCLOPRAMIDE HCL 10 MG/2 ML SDV IV PRN (12:15)
[2023-07-23] MEDS ORDERED: MORPHINE SULFATE 10 MG/ML VIAL IV PRN (12:15)
[2023-07-23] MEDS ORDERED: METOPROLOL TARTRATE 5 MG/5 ML VIAL ONE (12:25)
[2023-07-23] MEDS ORDERED: ACETAMINOPHEN 1,000 MG/100 ML VIAL ONE (13:05)
[2023-07-23] MEDS ORDERED: IBUPROFEN 600 MG TAB PO PRN (21:30)
[2023-07-23] MEDS ORDERED: ACETAMINOPHEN 500 MG TAB PO PRN (21:30)
[2023-07-23] MEDS ORDERED: ACETAMINOPHEN 1,000 MG/100 ML VIAL IV PRN (21:30)
[2023-07-24] VITALS (7 sets, daily range): BP systolic 93–113; BP diastolic 60–73
[2023-07-24] MEDS ORDERED: KETOROLAC TROMETHAMINE 15 MG/ML VIAL IV PRN ×2 (07:30→12:00)
[2023-07-24 08:47] LABS: BASOPHILS 0.3 % (0-2); EOSINOPHILS 0.1 % (0-6); HEMATOCRIT 39.3 % (35.0-50.0); HEMOGLOBIN 13.1 g/dL (12.0-18.0); LYMPHOCYTES 10.3 % (24-44); MCH 31.8 (27-36); MCHC 33.4 g/dl (30-36); MCV 95.3 fl (81-99); MONOCYTES 4.5 % (0-12); NEUTROPHILS 84.8 % (39-80); PLATELET COUNT 291 K/uL (140-440); RBC 4.12 M/ul (4.3-5.7)
[2023-07-24 08:54] LABS: ANION GAP 11.7 (7-21); BUN/CREATININE RATIO 16.98 (6.0-28.6); CALCIUM 8.4 mg/dL (8.5-10.1); CREATININE, SERUM 0.53 mg/dL (0.55-1.02); POTASSIUM 3.7 mmol/L (3.5-5.1)
[2023-07-24] MEDS ORDERED: ACETAMINOPHEN 1,000 MG/100 ML VIAL IV PRN (10:00)
[2023-07-24] MEDS ORDERED: HYDROmorphone HCL 1 MG/ML SYR IV PRN (10:00)
[2023-07-24] MEDS ORDERED: OXYCODONE/APAP 7.5/325 TAB PO PRN (10:00)
[2023-07-24] MEDS ORDERED: TRELEGY ELLIPT1 EACH INH (11:32)
[2023-07-25] VITALS (7 sets, daily range): BP systolic 94–108; BP diastolic 54–75
[2023-07-25 09:37] LABS: HEMOGLOBIN 13.9 g/dL (12.0-18.0); MCH 31.1 (27-36); MCHC 32.3 g/dl (30-36); MCV 96.4 fl (81-99); PLATELET COUNT 412 K/uL (140-440); RBC 4.46 M/ul (4.3-5.7); RDW 12.8 (10.5-15.0)
[2023-07-25 09:54] LABS: LYMPHOCYTES, MANUAL DIFF 10; MONOCYTES, MANUAL DIFF 3; NEUTROPHILS, MANUAL DIFF 87
[2023-07-25] MEDS ORDERED: LACTATED RINGER'S 500 ML IV ONE (12:45)
[2023-07-25] MEDS ORDERED: fentaNYL citrate 100 MCG/2 ML VIAL ONE (14:31)
[2023-07-25] MEDS ORDERED: MIDAZOLAM HCL 5 MG/5 ML VIAL ONE (14:31)
[2023-07-25] MEDS ORDERED: DIATRIZOATE MEGLU/DIATRIZO SOD 15 ML BTL PO ONE ×2 (19:30→22:15)
[2023-07-26] VITALS (10 sets, daily range): BP systolic 104–116; BP diastolic 63–75
[2023-07-26 05:42] LABS: BASOPHILS 0.5 % (0-2); EOSINOPHILS 0.8 % (0-6); HEMATOCRIT 35.5 % (35.0-50.0); LYMPHOCYTES 8.7 % (24-44); MCH 32.1 (27-36); MCHC 33.6 g/dl (30-36); MCV 95.3 fl (81-99); MONOCYTES 4.8 % (0-12); NEUTROPHILS 85.2 % (39-80); PLATELET COUNT 383 K/uL (140-440); RBC 3.73 M/ul (4.3-5.7); RDW 12.5 (10.5-15.0)
[2023-07-26] MEDS ORDERED: DIATRIZOATE MEGLU/DIATRIZO SOD 15 ML BTL PO ONE (07:00)
[2023-07-26] MEDS ORDERED: LACTATED RINGER'S 500 ML IV SCH (07:45)
--- NOTE | 2023-07-26 13:37 | OR ---
[facility] [address], [place] [address] Signed DATE OF OPERATION: 07/23/2023 SURGEON: Marcella Ni MD PREOPERATIVE DIAGNOSES: 1. Retroperitoneal and perisigmoidal abscess. 2. Chronic cachexia and chronic abdominal pain. POSTOPERATIVE DIAGNOSIS: Retroperitoneal abscess, likely related to perforated diverticulitis. PROCEDURES: Laparoscopic drainage of left retroperitoneal abscess with mobilization of sigmoid colon, peritoneal lavage and placement of retroperitoneal drain. ANESTHESIA: General endotracheal, Marcella Espitia CRNA and local 10 mL of 0.25% Marcaine with epinephrine. INDICATION: This 68-year-old white woman has chronic abdominal pain problems and has been extensively evaluated elsewhere including [facility]. A celiac disease panel is pending upon my order. She presented to the emergency room yesterday with significant left lower abdominal pain after a week of poor oral intake (worse than usual, which is not good to begin with.) She was evaluated by Dr. Fine and a CT scan of the abdomen was obtained, which showed an inflammatory process in the retroperitoneum posterior and lateral to the sigmoid colon. There were air bubbles in the retroperitoneum and a reasonably well-formed abscess at least 2.5 cm in size with surrounding marked inflammatory changes. It is a presumption this represents perforated sigmoid colon, likely from diverticulitis. Her presentation included significant hypokalemia and hypomagnesemia and she has been fluid resuscitated, given intravenous antibiotic, Flagyl and Levaquin based on her allergy profile to medications. She does have left lower abdominal tenderness to a degree but no sign of generalized peritonitis. She has underlying inanition and cachexia, which make her much increased risk for complications related to operation; drainage of the inflammatory focus and abscess is a minimum standard need at this time. She may require additionally sigmoid resection. As she does have unprepped bowel and has poor underlying health, primary anastomosis though would certainly be accompanied by proximal diversion if required. A conventional Dean's resection with Electronically Signed By: MARCELLA NI MD 07/26/23 1337 PATIENT NAME: BRIAN WEAVER OPERATIVE REPORT DATE OF : 53 REPORT #: [id number] PHYSICIAN: MARCELLA NI MD PCP: JAY MONTEZ DO REPORT IS CONFIDENTIAL AND NOT TO BE RELEASED WITHOUT AUTHORIZATION [facility] [address], [place] [address] Signed end colostomy is a consideration as well. I have offered laparoscopy and retroperitoneal drainage and placement of drain and lavage if appropriate, though more advanced resectional therapy at this time may be required noting the aforementioned difficulties associated with resection in the emergency setting. An elective resection of the colon may be a consideration after this acute episode has settled. She and her understand these factors and wished to proceed as I have described. FINDINGS: There is no sign of generalized peritonitis. There is definitely fullness behind the sigmoid colon in the retroperitoneum. Mobilization of the sigmoid colon laparoscopically allowed for identification of a purulent collection in the distal descending colon. Further mobility of the sigmoid colon from the lateral wall revealed bile staining and contaminated fibrinous peel of the retroperitoneum in the area. This was widely opened, copiously irrigated and was able to be drained without need for resection at this time. There were no other findings of concern. 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 DESCRIPTION OF PROCEDURE: The patient was brought to the operating room and given a general endotracheal anesthetic. Preoperative antibiotic Levaquin and Flagyl had been given. Sequential compression device stockings were used. The abdomen was prepared with chlorhexidine solution and draped sterilely. An impressively thin abdominal wall was noted. An infraumbilical incision was made and using an open Simba cannula technique pneumoperitoneum achieved to a level 14 mmHg of carbon dioxide gas. Intra-abdominal inspection showed no sign of ascites or carcinomatosis. There was thickening in the area of the sigmoid colon but no free fluid or fibrinous exudate. An epigastric right paramedian 12 mm port was additionally placed allowing for single hand manipulation from the right side of the table in the region of the right colon. The sigmoid and descending colon appeared to have a firm and rubbery texture concordant to a retroperitoneal process in that area. In the right lower quadrant, 5 mm port was placed allowing for dissection of abdominal wall adhesions from the right lower abdomen providing for good exposure. With two-hand manipulation, the normal-appearing proximal descending colon was mobilized from the abdominal wall, ultimately encountering a collection of purulent material. This was suctioned free with a Luki tube to allow for Gram stain and culture. The colon was more fully mobilized from its retroperitoneal attachments in the region of the sigmoid revealing a cavity with purulent contamination and admittedly a small amount of fecal material but not much. Irrigation was undertaken until all of this was cleaned out. Further manipulation of the sigmoid colon more distally showed it to be quite mobile from the retroperitoneum at that point. As there was no sign of generalized Electronically Signed By: MARCELLA NI MD 07/26/23 1337 PATIENT NAME: BRIAN WEAVER OPERATIVE REPORT DATE OF : 53 REPORT #: [id number] PHYSICIAN: MARCELLA NI MD PCP: JAY MONTEZ DO REPORT IS CONFIDENTIAL AND NOT TO BE RELEASED WITHOUT AUTHORIZATION [facility] [address] [place], [place] [address] Signed peritonitis, only the retroperitoneal abscess, drainage procedure alone was deemed most advisable in her particular circumstance. Through a left-sided 5 mm port, a 7 mm flat Parminder drain was insinuated into the retroperitoneal space in the region of the sigmoid mesentery extending down to the sacral promontory area. Irrigation was undertaken more fully and contaminated bits of material were debrided and removed. Plans were then made for closure. The drain was secured in place with a 2-0 nylon suture and attached to bulb suction. The trocars were removed under direct visualization showing no sign of bleeding. All trocar sites were closed in their fascial layer so as to avoid postoperative herniation given her severe and impressive thin body wall. The skin was closed with interrupted 3-0 Vicryl after application of 10 mL of 0.25% Marcaine with epinephrine. Drainage from the bulb showed serosanguineous fluid. No evidence of ongoing purulence and no sign of gross bleeding. Blood loss was estimated in total at 25 mL. Sponge, needle and instrument counts were reported as correct x3. MD MEAGHAN To/KASSY /[id number] cc: Dr. Babatunde Montez DO Copies: JAY MONTEZ DO ~ Electronically Signed By: MARCELLA NI MD 07/26/23 1337 PATIENT NAME: BRIAN WEAVER OPERATIVE REPORT DATE OF : 53 REPORT #: [id number] PHYSICIAN: MARCELLA NI MD PCP: JAY MONTEZ DO REPORT IS CONFIDENTIAL AND NOT TO BE RELEASED WITHOUT AUTHORIZATION
[2023-07-27] VITALS (9 sets, daily range): BP systolic 110–120; BP diastolic 65–75
[2023-07-27 08:10] LABS: BASOPHILS 0.4 % (0-2); EOSINOPHILS 0.7 % (0-6); HEMATOCRIT 41.7 % (35.0-50.0); HEMOGLOBIN 13.8 g/dL (12.0-18.0); LYMPHOCYTES 9.7 % (24-44); MCH 31.7 (27-36); MONOCYTES 6.1 % (0-12); NEUTROPHILS 83.1 % (39-80); PLATELET COUNT 504 K/uL (140-440); RBC 4.35 M/ul (4.3-5.7); RDW 12.9 (10.5-15.0)
[2023-07-27] MEDS ORDERED: CIPROFLOXACIN 500 MG TAB PO SCH (12:22)
[2023-07-27] MEDS ORDERED: metroNIDAZOLE 250 MG TAB PO SCH (17:00)
[2023-07-27] MEDS ORDERED: FAMOTIDINE 20 MG TAB PO SCH (21:00)
[2023-07-28] VITALS (8 sets, daily range): BP systolic 105–126; BP diastolic 62–83
[2023-07-28 05:28] LABS: BASOPHILS 0.6 % (0-2); EOSINOPHILS 2.2 % (0-6); HEMATOCRIT 35.9 % (35.0-50.0); HEMOGLOBIN 12.1 g/dL (12.0-18.0); LYMPHOCYTES 12.2 % (24-44); MCH 32.2 (27-36); MCHC 33.6 g/dl (30-36); MCV 95.6 fl (81-99); MONOCYTES 10.4 % (0-12); NEUTROPHILS 74.6 % (39-80); PLATELET COUNT 445 K/uL (140-440); RBC 3.75 M/ul (4.3-5.7); RDW 12.7 (10.5-15.0)
[2023-07-28] MEDS ORDERED: levoFLOXacin 500 MG/100 ML BAG IV ONE (10:15)
[2023-07-28] MEDS ORDERED: MENTHOL/ZINC OXIDE 113 GM TUBE TOP PRN ×2 (14:30→14:45)
[2023-07-28] MEDS ORDERED: PROCHLORPERAZINE EDISYLATE 10 MG/2 ML VIAL IV PRN (22:30)
[2023-07-29] VITALS (9 sets, daily range): BP systolic 97–105; BP diastolic 52–60
[2023-07-29 05:21] LABS: BASOPHILS 0.3 % (0-2); EOSINOPHILS 0.6 % (0-6); HEMATOCRIT 37.2 % (35.0-50.0); HEMOGLOBIN 12.3 g/dL (12.0-18.0); LYMPHOCYTES 6.9 % (24-44); MCH 31.6 (27-36); MCHC 33.1 g/dl (30-36); MCV 95.4 fl (81-99); MONOCYTES 5.4 % (0-12); NEUTROPHILS 86.8 % (39-80); PLATELET COUNT 452 K/uL (140-440); RDW 13.1 (10.5-15.0)
[2023-07-29 05:34] LABS: ANION GAP 8.7 (7-21); BUN/CREATININE RATIO 5.4 (6.0-28.6); CALCIUM 7.8 mg/dL (8.5-10.1); CREATININE, SERUM 0.37 mg/dL (0.55-1.02); POTASSIUM 2.7 mmol/L (3.5-5.1)
[2023-07-29] MEDS ORDERED: MAGNESIUM SULFATE 2 GM/50 ML BAG IV ONE (06:15)
[2023-07-29] MEDS ORDERED: POTASSIUM CHLORIDE 40 MEQ,LIDOCAINE HCL 1% 40 MG in DEXTROSE 5% 500 ML IV SCH (08:00)
[2023-07-29] MEDS ORDERED: MAGNESIUM SULFATE 50 ML IV ONE (08:17)
[2023-07-29] MEDS ORDERED: levoFLOXacin 750 MG/150 ML BAG IV SCH (13:48)
[2023-07-29 18:20] LABS: ANION GAP 4.4 (7-21); BUN/CREATININE RATIO 3.92 (6.0-28.6); CALCIUM 7.9 mg/dL (8.5-10.1); CREATININE, SERUM 0.51 mg/dL (0.55-1.02); MAGNESIUM 1.5 mg/dL (1.8-2.4); POTASSIUM 3.4 mmol/L (3.5-5.1)
[2023-07-30] VITALS (9 sets, daily range): BP systolic 90–102; BP diastolic 55–62
[2023-07-30 05:31] LABS: BASOPHILS 0.2 % (0-2); EOSINOPHILS 0.9 % (0-6); HEMATOCRIT 35.1 % (35.0-50.0); LYMPHOCYTES 7.4 % (24-44); MCH 32.3 (27-36); MCHC 34.1 g/dl (30-36); MCV 94.7 fl (81-99); NEUTROPHILS 84.5 % (39-80); PLATELET COUNT 426 K/uL (140-440); RBC 3.71 M/ul (4.3-5.7); RDW 12.8 (10.5-15.0)
[2023-07-30 05:37] LABS: ANION GAP 8.7 (7-21); BUN/CREATININE RATIO 2.12 (6.0-28.6); CALCIUM 8.1 mg/dL (8.5-10.1); CREATININE, SERUM 0.47 mg/dL (0.55-1.02); MAGNESIUM 1.4 mg/dL (1.8-2.4); POTASSIUM 3.7 mmol/L (3.5-5.1)
[2023-07-30] MEDS ORDERED: MAGNESIUM SULFATE 2 GM/50 ML BAG IV ONE (14:15)
[2023-07-31] VITALS (7 sets, daily range): BP systolic 99–109; BP diastolic 52–66
[2023-07-31 05:30] LABS: MCV 95.3 fl (81-99)
[2023-07-31 05:33] LABS: BASOPHILS 0.7 % (0-2); EOSINOPHILS 2.3 % (0-6); HEMATOCRIT 33.1 % (35.0-50.0); HEMOGLOBIN 11.2 g/dL (12.0-18.0); LYMPHOCYTES 11.8 % (24-44); MCH 32.3 (27-36); MCHC 33.9 g/dl (30-36); MONOCYTES 7.8 % (0-12); NEUTROPHILS 77.4 % (39-80); PLATELET COUNT 476 K/uL (140-440); RBC 3.47 M/ul (4.3-5.7)
[2023-07-31] MEDS ORDERED: MAGNESIUM SULFATE 2 GM/50 ML BAG IV ONE (10:15)
[2023-08-01] VITALS (9 sets, daily range): BP systolic 93–114; BP diastolic 55–72
[2023-08-01 05:39] LABS: BASOPHILS 0.6 % (0-2); EOSINOPHILS 1.9 % (0-6); HEMATOCRIT 34.6 % (35.0-50.0); HEMOGLOBIN 11.9 g/dL (12.0-18.0); LYMPHOCYTES 13.7 % (24-44); MCH 32.6 (27-36); MCHC 34.5 g/dl (30-36); MCV 94.6 fl (81-99); MONOCYTES 9.3 % (0-12); NEUTROPHILS 74.5 % (39-80); PLATELET COUNT 547 K/uL (140-440); RBC 3.66 M/ul (4.3-5.7); RDW 12.7 (10.5-15.0)
[2023-08-01] MEDS ORDERED: MAGNESIUM SULFATE 2 GM/50 ML BAG IV SCH (09:30)
[2023-08-01] MEDS ORDERED: HYDROmorphone HCL 2 MG TAB PO PRN (11:00)
[2023-08-01] MEDS ORDERED: ONDANSETRON 4 MG TAB ODT SL PRN (22:00)
[2023-08-02] VITALS (7 sets, daily range): BP systolic 101–140; BP diastolic 55–81
[2023-08-02] MEDS ORDERED: levoFLOXacin 750 MG TAB PO SCH (09:00)
[2023-08-02 14:23] LABS: BASOPHILS 0.5 % (0-2); EOSINOPHILS 1.2 % (0-6); HEMATOCRIT 35.8 % (35.0-50.0); HEMOGLOBIN 12.2 g/dL (12.0-18.0); MCH 32.4 (27-36); MCV 95.3 fl (81-99); MONOCYTES 8.4 % (0-12); NEUTROPHILS 78.9 % (39-80); PLATELET COUNT 588 K/uL (140-440); RBC 3.75 M/ul (4.3-5.7)
[2023-08-02 14:32] LABS: BUN/CREATININE RATIO 5.71 (6.0-28.6); CALCIUM 8.4 mg/dL (8.5-10.1); CREATININE, SERUM 0.7 mg/dL (0.55-1.02); MAGNESIUM 1.9 mg/dL (1.8-2.4)
[2023-08-02] MEDS ORDERED: POTASSIUM CHLORIDE 10 MEQ TABCR PO SCH (18:00)
[2023-08-03] VITALS (8 sets, daily range): BP systolic 104–130; BP diastolic 70–78
[2023-08-03 05:46] LABS: ANION GAP 7.9 (7-21); BUN/CREATININE RATIO 5.45 (6.0-28.6); CALCIUM 8.3 mg/dL (8.5-10.1); CREATININE, SERUM 0.55 mg/dL (0.55-1.02); MAGNESIUM 1.7 mg/dL (1.8-2.4); POTASSIUM 4.9 mmol/L (3.5-5.1)
[2023-08-03 09:55] LABS: BASOPHILS 0.9 % (0-2); EOSINOPHILS 1.8 % (0-6); HEMOGLOBIN 11.6 g/dL (12.0-18.0); LYMPHOCYTES 13.6 % (24-44); MCH 32.6 (27-36); MCHC 34.2 g/dl (30-36); MCV 95.3 fl (81-99); MONOCYTES 11.8 % (0-12); NEUTROPHILS 71.9 % (39-80); PLATELET COUNT 542 K/uL (140-440); RBC 3.57 M/ul (4.3-5.7); RDW 13.2 (10.5-15.0)
[2023-08-03] MEDS ORDERED: MAGNESIUM OXIDE 400 MG TABLET PO SCH (13:32)
[2023-08-04 06:06] VITALS: BP 136/67
[2023-08-04] MEDS ORDERED: POTASSIUM CHLORIDE 10 MEQ TABCR PO SCH (09:00)
[2023-08-04 09:44] VITALS: BP 111/90
[2023-08-04 10:28] LABS: EOSINOPHILS 20.3 % (0-6); HEMATOCRIT 38.5 % (35.0-50.0); HEMOGLOBIN 12.7 g/dL (12.0-18.0); LYMPHOCYTES 24.5 % (24-44); MCH 31.5 (27-36); MCHC 32.9 g/dl (30-36); MCV 95.7 fl (81-99); MONOCYTES 2.9 % (0-12); NEUTROPHILS 52.3 % (39-80); PLATELET COUNT 605 K/uL (140-440); RBC 4.02 M/ul (4.3-5.7); RDW 13.3 (10.5-15.0)
[2023-08-04 10:44] LABS: ANION GAP 12.6 (7-21); BUN/CREATININE RATIO 7.57 (6.0-28.6); CALCIUM 8.8 mg/dL (8.5-10.1); CREATININE, SERUM 0.66 mg/dL (0.55-1.02); MAGNESIUM 1.8 mg/dL (1.8-2.4); POTASSIUM 4.6 mmol/L (3.5-5.1)
[2023-08-04 12:24] VITALS: BP 111/90
[2023-08-04 13:05] VITALS: BP 116/74
[2023-08-04] MEDS ORDERED: LEVOFLOXACIN750 MG PO (13:35)
[2023-08-04] MEDS ORDERED: NICOTINE PATCH1 EACH TD (13:35)
[2023-08-04] MEDS ORDERED: IBUPROFEN600 MG PO (13:35)
[2023-08-04] MEDS ORDERED: KLOR-CON 1010 MEQ PO (13:36)
[2023-08-04] MEDS ORDERED: ACETAMINOPHEN500 MG PO (13:36)
[2023-08-04] MEDS ORDERED: MAG-OXIDE400 MG PO (13:36)
[2023-08-04] MEDS ORDERED: HYDROMORPHONE HC2 MG PO (13:36)
[2023-08-04] MEDS ORDERED: FAMOTIDINE20 MG PO (13:37)
[2023-08-04] MEDS ORDERED: CALMOSEPTINE OI71 GM TOP (13:37)
[2023-08-04] MEDS ORDERED: ONDANSETRON ODT4 MG PO (14:26)
[2023-08-04 14:59] VITALS: BP 98/67
--- NOTE | 2023-08-05 12:21 | DS ---
[facility] [address] [place], [place] [address] Signed ADMISSION DATE: 07/22/2023 DISCHARGE DATE: 08/04/2023 REASON FOR ADMISSION: Retroperitoneal abscess related to perforated diverticulitis. HISTORY OF PRESENT ILLNESS: This 68-year-old white woman is a patient of Dr. Franco Montez and has long-standing cachexia and inanition. She has had extensive evaluation at multiple institutions including [facility]. She has long-standing COPD and persistent smoking. She presented to the emergency room at approximately 9 in the morning the day of her admission with generalized illness of nausea and vomiting and weakness. She has had poor appetite over the preceding week, which is not particularly new for her. She does have abdominal pain chronically but exacerbation most recently. Notably, she has undergone cholecystectomy, hysterectomy and tonsillectomy in the past. Evaluation in the emergency room by Dr. Fine, emergency room physician included clinical examination showing a white count of greater than 14.2 with tenderness in the left lower abdomen. A CT scan showing mucosal hyperenhancement of the rectosigmoid and distal sigmoid and left-sided retroperitoneum. There is a small amount of pneumoperitoneum and rim enhancing fluid collection consistent with retroperitoneal abscess. This was considered likely to represent perforated diverticulitis. She was admitted for further evaluation and care. PERTINENT PHYSICAL EXAMINATION: GENERAL: Showed a cachectic white woman, who did not look septic at that time. VITAL SIGNS: Temperature is 99, pulse 80, blood pressure 100/73, O2 saturation 95% on 2 L nasal cannula oxygen. NECK: Trachea is midline. CHEST: Clear, although breath sounds were distant. ABDOMEN: Scaphoid, flat, and nondistended. There is mild tenderness in the left lower quadrant. LABORATORY DATA: White count was 14.2, hematocrit 43.5, platelets 286,000. Chem profile showed a sodium of 131, potassium 2.5, chloride 91, CO2 of 33, creatinine 0.64. Liver enzymes were normal. Urinalysis, 4 to 6 red cells per high-power field. HOSPITAL COURSE: Close inspection showed the patient to have quite obviously an abscess in the retroperitoneum related likely to perforated sigmoid diverticulitis, though this was not certain. On July 23, 2023, after fluid resuscitation, she underwent laparoscopy with laparoscopic drainage of the left retroperitoneal abscess with mobilization of the Electronically Signed By: MARCELLA NI MD 08/05/23 1221 PATIENT NAME: BRIAN WEAVER DISCHARGE SUMMARY DATE OF : 53 REPORT #: [id number] PHYSICIAN: MARCELLA NI MD PCP: FRANCO MONTEZ DO REPORT IS CONFIDENTIAL AND NOT TO BE RELEASED WITHOUT AUTHORIZATION [facility] [address] [place] [id number] Signed sigmoid colon, peritoneal lavage and placement of retroperitoneal drain. Consideration had been made for sigmoid resection, end colostomy or primary resection anastomosis and proximal diversion loop ileostomy. However, under the circumstances of her underlying health, avoidance of an ostomy was deemed appropriate if possible, and on that basis this approach to management was undertaken. The patient had prompt resumption of oral intake, though significant white count was noted at 21,000. Nicotine patch was used to accommodate her tobacco addiction. The drain that was in place initially did not drain too much fluid, but ultimately did show some drainage of enteric contents. A CT scan was repeated on July 26, 2023, assuring the abscess had been completely drained and without ongoing fluid collection elsewhere. By 07/27/2023, she was noted to have some fecal appearing drainage from the retrocolic drain. She had issues with hypokalemia and hypomagnesemia for which repletion therapy was undertaken. She was transitioned to Levaquin and Flagyl antibiotics. Her white count was variably increased and decreased overtime. A low-fiber diet was initiated and drain output diminished. She did have bowel function, particularly following a CT scan with no doubt osmotic stimulus effect of the G contrast. She did thereafter have findings suggestive of ileus with dilated loops of small bowel on KUB on 07/31/2023, but her clinical situation improved. She had decreasing output from the drain and was tolerating antibiotic Levaquin well. She did not tolerate Flagyl well and trial of withholding and administering did show that she had a fair amount of nausea from it and therefore it was discontinued. Consideration was made for return to the operating room for sigmoid resection. However, she had progressive improvement and avoidance of additional operation and in particular avoidance of resection given her underlying infirmity, which might well be optimized for future resection was undertaken. By the day of discharge, she is ambulating well. The drain shows scant drainage, but does appear to be somewhat bile-stained. She has no abdominal tenderness particularly and pain complaint is well managed with oral analgesics. Her lab studies on the day of discharge includes a white count of 9.6, hematocrit 38.5, platelets 605,000. Chem profile shows a sodium of 129, creatinine is 0.66, glucose 122, magnesium 1.8. FOLLOWUP PLAN: She is to return to see me in approximately 10 to 14 days at which time, her drain will be removed if clear and without enteric appearing drainage. The long-term goal of course is bowel preparation, elective Electronically Signed By: MARCELLA NI MD 08/05/23 9020 PATIENT NAME: BRIAN WEAVER DISCHARGE SUMMARY DATE OF : 53 REPORT #: [id number] PHYSICIAN: MARCELLA NI MD PCP: FRANCO MONTEZ DO REPORT IS CONFIDENTIAL AND NOT TO BE RELEASED WITHOUT AUTHORIZATION [facility] [address] [place], [place] [address] Signed sigmoid resection with primary anastomosis. She is encouraged to take as much oral nutrition as possible, but to maintain a low-fiber diet as the colon continues to heal. She has previously taken Ensure [place] Flavor at minimum two cans a day and possibly more if she is able would be appropriate. She will lift no more than 20 pounds for the next week or so. she is advised to avoid smoking as well. DISCHARGE MEDICATIONS: Will include: 1. Levaquin 750 mg p.o. daily, #10. 2. Nicotine patch 14 mg for 24 hours daily #30, refill 3. 3. Ibuprofen 600 mg q.6 hours as needed for pain #60, refill 0. 4. Dilaudid 2 mg 1-2 q.4 hours as needed for pain #20, no refill. 5. Tylenol plain 1000 mg p.o. q.6 hours as needed for pain #30, refill 1. 6. Potassium chloride (Klor-Con) 10 mEq 2 to 3 tablets p.o. daily #30, refills 0. 7. Mag oxide 400 mg two tablets p.o. b.i.d. #30. 8. Famotidine 20 mg p.o. q.12 hours #60, refill 3. 9. Calmoseptine ointment to apply as needed to perianal area for irritation. DISCHARGE DIAGNOSES: 1. Retroperitoneal abscess, considered likely related to perforated sigmoid diverticulitis, status post laparoscopic drainage of retroperitoneal abscess, placement of drain and irrigation. 2. Long-standing chronic obstructive pulmonary disease with cachexia and ongoing persistent smoking. 3. History of cholecystectomy and hysterectomy. 4. Allergies to sulfamethoxazole, cephalexin and apparent intolerance of oral Flagyl antibiotic. MD MEAGHAN To/ADOREL /[id number] cc: Franco Montez DO Electronically Signed By: MARCELLA NI MD 08/05/23 1221 PATIENT NAME: BRIAN WEAVER DISCHARGE SUMMARY DATE OF : 53 REPORT #: [id number] PHYSICIAN: MARCELLA NI MD PCP: FRANCO MONTEZ DO REPORT IS CONFIDENTIAL AND NOT TO BE RELEASED WITHOUT AUTHORIZATION [facility] [address] [place] [address] [place], [place] [address] Signed Copies: FRANCO MONTEZ DO ~ Electronically Signed By: MARCELLA NI MD 08/05/23 1221 PATIENT NAME: BRIAN WEAVER DISCHARGE SUMMARY DATE OF : 53 REPORT #: [id number] PHYSICIAN: MARCELLA NI MD PCP: FRANCO MONTEZ DO REPORT IS CONFIDENTIAL AND NOT TO BE RELEASED WITHOUT AUTHORIZATION
== END 2023-08-04 15:10 | disposition home or self-care (01) | DRG 356 ==
LOC: ED 08:48 → MS 14:17
PROVIDERS: Emergency Medicine; ADMIT Surgery; ATTEND Surgery
PROC: 0W9H40Z Drainage of Retroperitoneum with Drainage Device, Percutaneous Endoscopic Approach (ICD-10-PCS; principal; 2023-07-23 11:15)
DX: K57.20 Diverticulitis of large intestine with perforation and abscess without bleeding (principal); K65.1 Peritoneal abscess; R64 Cachexia; K56.7 Ileus, unspecified; Z68.1 Body mass index [BMI] 19.9 or less, adult; K21.9 Gastro-esophageal reflux disease without esophagitis; F17.210 Nicotine dependence, cigarettes, uncomplicated; E87.6 Hypokalemia; E83.42 Hypomagnesemia; J44.9 Chronic obstructive pulmonary disease, unspecified; F10.90 Alcohol use, unspecified, uncomplicated; B96.89 Other specified bacterial agents as the cause of diseases classified elsewhere; F12.90 Cannabis use, unspecified, uncomplicated; Z88.0 Allergy status to penicillin; Z79.899 Other long term (current) drug therapy; Z90.710 Acquired absence of both cervix and uterus; Z90.49 Acquired absence of other specified parts of digestive tract; Z90.89 Acquired absence of other organs; Z88.2 Allergy status to sulfonamides; Z88.8 Allergy status to other drugs, medicaments and biological substances; Z88.1 Allergy status to other antibiotic agents; Z11.52 Encounter for screening for COVID-19
CPT/HCPCS: 00840; 36415; 51798; 74018; 74177; 80048; 80053; 81001; 82977; 83735; 85025; 87070; 87075; 87205; 87502; 94760; A9270; J0131; J0330; J0780; J1100; J1160; J1170; J1720; J1790; J1885; J1956; J2250; J2270; J2405; J2704; J2765; J3010; J3475; J3480; J3490; J7030; J7060; J7120; J7121; Q9967; U0002

== ENCOUNTER 2024-08-26 15:15 | Inpatient (IN) | payer MEDICARE, OTHER ==
[2024-08-26] VITALS (11 sets, daily range): BP systolic 73–116; BP diastolic 44–102
[~2024-08-26] VITALS: Ht 167.6 cm; Wt 40.0 kg
--- NOTE | ~2024-08-26 | EKG ---
[facility] [address] [facility] [place], [place] [address] Draft EK completed, results pending confirmation PATIENT NAME: BRIAN WEAVER Electrocardiogram DATE OF : 53 PHYSICIAN: PRELIMINARY REPORT #: [id number] REPORT IS CONFIDENTIAL AND NOT TO BE RELEASED WITHOUT AUTHORIZATION
[~2024-08-26 15:15] MED LIST changes: +ACETAMINOPHEN500 MG PO; +CALMOSEPTINE OI71 GM TOP; +CIPROFLOXACIN500 MG PO; +FAMOTIDINE20 MG PO; +HYDROMORPHONE HC2 MG PO; +IBUPROFEN600 MG PO; +KLOR-CON 1010 MEQ PO; +LEVOFLOXACIN750 MG PO; +MAG-OXIDE400 MG PO; +MAGOX 400400 MG PO; +METRONIDAZOLE250 MG PO; +NICOTINE PATCH1 EACH TD; +ONDANSETRON ODT4 MG PO; +TRELEGY ELLIPT1 EACH INH
--- OUTSIDE RECORDS SUMMARY | 2024-08-26 15:22 | XMS ---
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 E.D. VISIT COUNT (12 MO.) 1 NIKA Leonard TOTAL 1 NOTE: Visits indicate total known visits. ED/UCC VISIT TRACKING (12 MO.) 08/26/2024 15:15 NIKA Bowles [place] TYPE: Emergency COMPLAINT: - SHORTNESS OF BREATH INPATIENT VISIT TRACKING (12 MO.) No inpatient visits to display in this time frame [email or web address]
[2024-08-26] MEDS ORDERED: ALBUTEROL/IPRATROPIUM 3 ML NEB INH PRN (15:30)
[2024-08-26] MEDS ORDERED: PRILOSEC10 M1 (15:37)
[2024-08-26 15:43] LABS: BASOPHILS 0.1 % (0-2); EOSINOPHILS 0.1 % (0-6); HEMATOCRIT 42.6 % (35.0-50.0); HEMOGLOBIN 14.4 g/dL (12.0-18.0); LYMPHOCYTES 3.9 % (24-44); MCH 31.8 (27-36); MCHC 33.9 g/dl (30-36); MCV 93.9 fl (81-99); MONOCYTES 2.3 % (0-12); NEUTROPHILS 93.6 % (39-80); PLATELET COUNT 224 K/uL (140-440); RBC 4.54 M/ul (4.3-5.7); RDW 13.6 (10.5-15.0)
[2024-08-26] MEDS ORDERED: ondansetron HCL 4 MG/2 ML VIAL IV ONE (15:45)
[2024-08-26] MEDS ORDERED: methylPREDNISolone SOD SUCC 125 MG/2 ML VIAL IV ONE (15:45)
[2024-08-26] MEDS ORDERED: ALBUTEROL SULFATE 0.5% 2.5 MG/0.5 ML VIAL INH ONE (15:45)
[2024-08-26 16:03] LABS: LACTIC ACID, BLOOD 2.3 mmol/L (0.4-2.0)
[2024-08-26 16:05] LABS: ALBUMIN 3.3 g/dL (3.4-5.0); ALBUMIN/GLOBULIN RATIO 0.77 (1.1-2.4); ALKALINE PHOSPHATASE 91 U/L (46-116); ALT (SGPT) 16 U/L (14-59); ANION GAP 11.9 (7-21); AST (SGOT) 12 U/L (15-37); BILIRUBIN, TOTAL 1.3 mg/dL (0.2-1.0); BUN/CREATININE RATIO 31.08 (6.0-28.6); CALCIUM 9.6 mg/dL (8.5-10.1); CARBON DIOXIDE 31 mmol/L (21-32); CHLORIDE 94 mmol/L (98-107); CREATININE, SERUM 0.74 mg/dL (0.55-1.02); GLOMERULAR FILTRATION RATE,EST 87 mL/min (>60); MAGNESIUM 1.7 mg/dL (1.8-2.4); POTASSIUM 3.9 mmol/L (3.5-5.1); PROTEIN, TOTAL 7.6 g/dL (6.4-8.2); UREA NITROGEN 23 mg/dL (7-18)
[2024-08-26] MEDS ORDERED: SODIUM CHLORIDE 0.9% 1,000 ML IV ONE ×2 (16:15→21:15)
[2024-08-26] MEDS ORDERED: CEFTRIAXONE SODIUM 2 GM VIAL ONE (16:17)
[2024-08-26] MEDS ORDERED: CEFTRIAXONE SODIUM 2 GM in SODIUM CHLORIDE 0.9% 100 ML IV ONE (16:30)
[2024-08-26 16:32] LABS: INFLUENZA B NAA NEGATIVE (NEGATIVE); RESPIRATORY SYNCYTIAL VIR NAA NEGATIVE (NEGATIVE)
[2024-08-26] MEDS ORDERED: AZITHROMYCIN 500 MG in DEXTROSE 5% 250 ML IV ONE (17:00)
[2024-08-26 17:35] LABS: LACTIC ACID, BLOOD 2.3 mmol/L (0.4-2.0)
[2024-08-26] MEDS ORDERED: ondansetron HCL 4 MG/2 ML VIAL IV PRN (18:30)
[2024-08-26] MEDS ORDERED: ACETAMINOPHEN 325 MG TAB PO PRN (18:30)
[2024-08-26] MEDS ORDERED: SODIUM CHLORIDE 0.9% 1,000 ML IV SCH ×2 (18:30)
--- NOTE | 2024-08-26 19:45 | NUR ---
HANDOFF REPORT RECEIVED FROM YO MADRID. PATIENT IS LAYING AWAKE IN BED, NO NEEDS AT THIS TIME. CALL LIGHT IN REACH.
[2024-08-26] MEDS ORDERED: BUDESONIDE 0.5 MG/2 ML VIAL INH SCH (20:00)
[2024-08-26] MEDS ORDERED: ALBUTEROL/IPRATROPIUM 3 ML NEB INH SCH (20:00)
[2024-08-26] MEDS ORDERED: BENZONATATE 100 MG CAP PO PRN (20:00)
[2024-08-26] MEDS ORDERED: MAGNESIUM SULFATE 2 GM/50 ML BAG IV ONE (20:00)
[2024-08-26] MEDS ORDERED: guaiFENesin 600 MG TABCR PO PRN (20:00)
--- NOTE | 2024-08-26 20:00 | NUR ---
PATIENT ASSESSMENT COMPLETE. PATIENT ALERT AND ORIENTED X4. PATIENT ON 4L NC, STATES SHE DOES NOT WEAR OXYGEN AT HOME. PATIENT BLOOD PRESSURE NOTED TO BE SOFT. PATIENT STATES HER BLOOD PRESSURE HAS ALWAYS BEEN LOW. IV FLUID BOLUS INFUSING PER EMAR, PATIENT IV SITE WNL. PATIENT COLOSTOMY BAG WNL. PATIENT DENIES ANY NAUSEA OR PAIN AT THIS TIME. REDDENED AREA NOTED ON PATIENT SPINE. PATIENT ALSO NOTED TO HAVE REDDENED, BLACHABLE AREA ON COCCYX AREA. PATIENT REPOSITIONED WITH PILLOWS, PROVIDED WITH WARM BLANKET. NO FURTHER NEEDS AT THIS TIME. CALL LIGHT IN REACH.
--- NOTE | 2024-08-26 20:45 | NUR ---
PATIENT REPOSITONED IN BED. PATIENT TITRATED DOWN TO 2L NC, TOLERATING WELL. SPO2 93%. PATIENT UPDATED ON PLAN OF CARE FOR THE NIGHT. NO NEEDS AT THIS TIME. CALL LIGHT IN REACH.
[2024-08-26] MEDS ORDERED: MELATONIN 3 MG TAB PO PRN (21:00)
--- NOTE | 2024-08-26 21:18 | NUR ---
DR. TA CALLED AND UPDATED ON PATIENT LAB RESULT. NEW ORDER RECEIVED- SEE EMAR. VERIFIED VIA REPEAT BACK METHOD.
[2024-08-26] MEDS ORDERED: NOREPINEPHRINE BITARTRATE 250 ML IV SCH (21:45)
--- NOTE | 2024-08-26 21:45 | NUR ---
DR TA ROUNDING ON UNIT. NEW ORDERS RECEIVED PER EMAR. PATIENT CHANGED TO CCU STATUS.
--- NOTE | 2024-08-26 22:20 | NUR ---
NOREPINEPHRINE GTT STARTED PER EMAR FOR PATIENT LOW BLOOD PRESSURE READINGS. PATIENT IV SITE WNL. PATIENT UPDATED ON PLAN OF CARE, NO QUESTIONS AT THIS TIME. CALL LIGHT IN REACH.
--- NOTE | 2024-08-26 22:50 | NUR ---
NOREPINEPHRINE GTT TITRATED PER MEDICATION FLOWSHEET TO OBTAIN A MAP >65. IV SITE WNL. PATIENT HAS CALL LIGHT IN REACH.
--- NOTE | 2024-08-26 23:20 | NUR ---
PATIENT NOREPINEPHRINE GTT TITRATED PER MEDICATION FLOWSHEET. PATIENT HAS NO NEEDS AT THIS TIME. CALL LIGHT IN REACH.
[2024-08-27] VITALS (35 sets, daily range): BP systolic 79–113; BP diastolic 51–80
--- NOTE | 2024-08-27 01:10 | NUR ---
PATIENT UP TO BEDSIDE COMMODE TO VOID. PATIENT STEADY ON FEET. PATIENT OXYGEN TITRATED UP TO 4L NC, PATIENT NOTED TO DESAT AND BE SOB WITH MOVEMENT. PATIENT VOIDS 900CC OF URINE AND BACK TO BED. PATIENT REPOSITOINED IN BED. NO FURTHER NEEDS AT THIS TIME. CALL LIGHT IN REACH.
--- NOTE | 2024-08-27 03:33 | NUR ---
PATIENT RESTING IN BED WITH EYES CLOSED, RR 20. NO ACUTE DISTRESS NOTED. PATIENT HAS NO NEEDS AT THIS TIME. CALL LIGHT IN REACH.
[2024-08-27] MEDS ORDERED: ALBUTEROL SULFATE 0.083% 3 ML VIAL INH PRN (04:15)
--- NOTE | 2024-08-27 04:59 | NUR ---
PATIENT AWAKE. PATIENT NOTED TO BE SWEATY AND WARM TO TOUCH. TEMP TAKEN AND WNL. PATIENT DENIES ANY PAIN, NAUSEA, OR NEEDS AT THIS TIME. PATIENT REMAINS ON NOREPINEPHRINE GTT PER MEDICATION FLOW SHEET. PATIENT IVF INFUSING PER EMAR. PATIENT IV SITE WNL. PATIENT HAS CALL LIGHT IN REACH.
[2024-08-27 05:26] LABS: HEMATOCRIT 32.4 % (35.0-50.0); HEMOGLOBIN 10.8 g/dL (12.0-18.0); MCH 31.3 (27-36); MCHC 33.3 g/dl (30-36); PLATELET COUNT 182 K/uL (140-440); RBC 3.45 M/ul (4.3-5.7); RDW 13.5 (10.5-15.0)
[2024-08-27 05:41] LABS: ALBUMIN 2.2 g/dL (3.4-5.0); ALBUMIN/GLOBULIN RATIO 0.61 (1.1-2.4); ANION GAP 10.9 (7-21); BILIRUBIN, TOTAL 0.4 mg/dL (0.2-1.0); BUN/CREATININE RATIO 33.33 (6.0-28.6); CALCIUM 8.3 mg/dL (8.5-10.1); CREATININE, SERUM 0.42 mg/dL (0.55-1.02); PHOSPHORUS, INORGANIC 2.5 mg/dL (2.5-4.9); POTASSIUM 3.9 mmol/L (3.5-5.1); PROTEIN, TOTAL 5.8 g/dL (6.4-8.2)
[2024-08-27 06:14] LABS: BANDS, MANUAL DIFF 20; LYMPHOCYTES, MANUAL DIFF 3; MONOCYTES, MANUAL DIFF 1; NEUTROPHILS, MANUAL DIFF 76
--- NOTE | 2024-08-27 08:15 | NUR ---
PATIENT AWAKE AND SITTING UP UPON INITIAL ASSESSMENT. PT REPORTS FEELING BETTER, AND STATES SHE CAN BREATHE A LOT BETTER THAN YESTERDAY WHEN SHE CAME IN. RT IN FOR AM BREATHING TX. LUNGS ARE CLEAR/DIM. PT ON 1 L NC. LEVOPHED TURNED DOWN TO 3 MCG/MIN AND WILL CONTINUE TO TITRATE DOWN DAE. PT RATES PAIN 7/10 IN LEFT CHEST AREA FROM COUGHING AND REPORTS IT HURTS TO TOUCH THIS AREA WELL. PT NOW SITTING UP EATING BREAKFAST. PLAN OF CARE DISCUSSED. PT CURIOUS ABOUT THE NODULE IN RIGHT UPPER LUNG NOTED ON HER CT SCAN. WILL CONTINUE TO MONITOR.
[2024-08-27] MEDS ORDERED: ENOXAPARIN SODIUM 40 MG/0.4 ML SYR SUB-Q SCH (09:00)
[2024-08-27] MEDS ORDERED: methylPREDNISolone SOD SUCC 125 MG/2 ML VIAL IV SCH (09:00)
--- NOTE | 2024-08-27 09:55 | NUR ---
ALERT AND ORIENTED IN BED. LIVES AT HOME WITH SPOUSE. HAS 4 STEPS TO GET INSIDE. DOES OK WITH STEPS TO GET INSIDE. STATES SHE HAS A BASEMENT BUT DOES NOT GO DOWNSTAIRS. STATES SHE HAS A WALKER, SHOWER CHAIR AND COMMODE AT HOME, BUT DOES NOT USE THEM. SHE NO LONGER DRIVES, HER , CIARAN, PROVIDES HER TRANSPORATION. DENIES FINANCIAL HARDSHIP. STATES ABLE TO PAY UTILITIES, FOOD AND MEDICATIONS WITHOUT NEEDS. DEMOGRAPHICS VERIFIED. STATES SHE NO LONGER HAS A PCP. WAS SEEING DR. ODELL. DOES NOT WANT TO BE SEEN BY PA OR CHUTE TENDER, PREFERS A PHYSICIAN. WILL ATTEMPT TO GET HER ESTABLISHED AT [facility] PER REQUEST WHEN PATIENT CHOICES PROVIDED. WILL SEND CHART TO CLINIC AND REQUEST APPOINTMENT FOR FOLLOW-UP.
[2024-08-27] MEDS ORDERED: PHARMACY RENAL DOSE ADJUSTMENT 1 DOSE MISC PO SCH (12:00)
--- NOTE | 2024-08-27 12:07 | NUR ---
MED REC COMPLETE
--- NOTE | 2024-08-27 14:24 | NUR ---
PT NOT AVAILABLE FOR VISIT. PROVIDED PRAYER.
--- NOTE | 2024-08-27 14:34 | NUR ---
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
[2024-08-27] MEDS ORDERED: CEFTRIAXONE SODIUM 2 GM in SODIUM CHLORIDE 0.9% 100 ML IV SCH (16:00)
[2024-08-27] MEDS ORDERED: AZITHROMYCIN 500 MG in DEXTROSE 5% 250 ML IV SCH (16:00)
--- NOTE | 2024-08-27 16:42 | NUR ---
PATIENT WALKED IN VALENTINE WITH THIS RN AND NEEDED 02 WHILE WALKING. INITIALLY WAS ON ROOM AIR AND DESATURATED, DOWN TO 81%. OXYGEN THEN TURNED UP TO 4L, BUT EVENTUALLY TITRATED BACK TO 2 L AND MAINTAINED SP02 ON THIS. PT NOW ON ROOM AIR WHILE RESTING IN BED. PT'S SUGAR IN ROOM WITH HER. PT LOOKING AT THE MENU FOR DINNER AND BREAKFAST TOMORROW. PT ABLE TO VOID IN TOILET. IVF CONTINUE AT 150 ML/HR.
[2024-08-27] MEDS ORDERED: CEFTRIAXONE SODIUM 2 GM VIAL ONE (16:48)
[2024-08-27] MEDS ORDERED: AZITHROMYCIN 500 MG VIAL ONE (17:23)
--- NOTE | 2024-08-27 19:32 | NUR ---
HANDOFF REPORT RECEVIED FROM DAY SHIFT RN. PATIENT SITTING UP AWAKE IN BED, RT IN ROOM. PATIENT HAS NO NEEDS AT THIS TIME. CALL LIGHT IN REACH.
--- NOTE | 2024-08-27 20:30 | NUR ---
PATIENT ASSESSMENT COMPLETE. PATIENT ON 1L NC, TOLERATING WELL. PATIENT REMAINS OFF LEVOPHED GTT, BP STABLE AT THIS TIME. IVF INFUSING PER EMAR, IV SITE WNL. PATIENT DENIES ANY NAUSEA. PATIENT STATES SHE HAS 5/10 RIB PAIN, WORSE WHEN COUGHING. PATIENT UP TO BEDSIDE COMMODE, VOIDS 200CC AND AMBUALTES BACK TO BED. PATIENT STEADY ON FEET. PATIENT COLOSTOMY BAG WNL. PATIENT CONTINUES TO HAVE OCCASIONAL PRODUCTIVE COUGH. PATIENT PROVIDED WITH WARM BLANKET. NO FURTHER NEEDS AT THIS TIME. CALL LIGHT IN REACH.
--- NOTE | 2024-08-27 22:40 | NUR ---
patient resting in bed with eyes closed, RR 17. patient remains on 1L NC, tolerating well. vital signs stable. patient has no needs at this time. call light in reach.
[2024-08-28] VITALS (18 sets, daily range): BP systolic 81–117; BP diastolic 53–83
--- NOTE | 2024-08-28 01:40 | NUR ---
patient awakens and states shes feeling SOB. RT called for PRN breathing tx. patient remains on 1L NC, SPO2 96%. patient lung sounds diminished on the left side. patient HOB elevated. patient states she feels a bit better after breathing treatment finished. patient has no further needs at this time. call light in reach.
--- NOTE | 2024-08-28 02:29 | NUR ---
patient resting in bed with eyes closed, RR 19. no distress noted. patient on 1L NC, tolerating well. no needs at this time. call light in reach.
--- NOTE | 2024-08-28 04:05 | NUR ---
patient resting in bed with eyes closed, respirations even and unlabored. patient remains on 1L NC, tolerating well. patient vital signs stable. no needs at this time. call light in reach.
--- NOTE | 2024-08-28 05:19 | NUR ---
lab in patient room for morning lab draw. patient has no needs at this time. call light in reach.
[2024-08-28 05:28] LABS: BASOPHILS 0.1 % (0-2); HEMATOCRIT 28.8 % (35.0-50.0); HEMOGLOBIN 9.7 g/dL (12.0-18.0); LYMPHOCYTES 3.1 % (24-44); MCH 31.7 (27-36); MCHC 33.8 g/dl (30-36); MCV 93.8 fl (81-99); MONOCYTES 2.8 % (0-12); PLATELET COUNT 184 K/uL (140-440); RBC 3.07 M/ul (4.3-5.7); RDW 13.5 (10.5-15.0)
--- NOTE | 2024-08-28 05:38 | NUR ---
patient up to bedside commode, voids 550cc, and back to bed. patient steady on feet. patient IVF infusing per EMAR, IV site WNL. patient remains on 1L NC, tolerating well. patient has no further needs at this time call light in reach. vital signs stable.
[2024-08-28 05:52] LABS: ALBUMIN 2.1 g/dL (3.4-5.0); ALBUMIN/GLOBULIN RATIO 0.6 (1.1-2.4); ANION GAP 8.6 (7-21); BILIRUBIN, TOTAL 0.2 mg/dL (0.2-1.0); BUN/CREATININE RATIO 22.58 (6.0-28.6); CALCIUM 8.6 mg/dL (8.5-10.1); CREATININE, SERUM 0.31 mg/dL (0.55-1.02); POTASSIUM 3.6 mmol/L (3.5-5.1); PROTEIN, TOTAL 5.6 g/dL (6.4-8.2)
--- NOTE | 2024-08-28 09:13 | NUR ---
DID HRLY ROUNDING ON PT AKSED IF SHE WANTED TO DO MORNING CARE, PT REFUSED AND SAID SHES TIRED RIGHT NOW MAYBE LATER. CALL LIGHT IS WITHIN REACH PT DIDNT NEED ANYTING ELSE AT THE MOMENT.
[2024-08-28] MEDS ORDERED: ALBUTEROL SULFATE 0.083% 3 ML VIAL INH PRN (10:00)
--- NOTE | 2024-08-28 10:32 | NUR ---
SPOKE WITH PATIENT REGARDING DC. PLAN TO GO HOME. REQUESTING A NEBULIZER MACHINE, STATES RT RECOMMENDED SHE OBTAIN ONE FOR HER COPD. WILL SPEAK WITH DR. TA REGARDING NEBULIZER NEED. ALSO INFORMED PATIENT SHE IS ON LIST FOR PCP AND WILL HAVE CLINIC WORK ON THAT PRIOR TO DC TO HOME. NO OTHER NEEDS AT THIS TIME. PATIENT CHOICES WERE PROVIDED FOR [employer], SHE PREFERS [employer].
[2024-08-28] MEDS ORDERED: ALBUTEROL/IPRATROPIUM 3 ML NEB INH SCH (12:00)
--- NOTE | 2024-08-28 12:00 | NUR ---
REPORT RECEIVED FROM JULIUS MORRIS. PATIENT TRANSFERED TO ROOM 113 BY THIS RN, JULIUS BIGGS, AND JULIUS MORRIS. PATIENT VITAL SIGNS TAKEN AND ARE STABLE. PATIENT SITTING UP IN CHAIR EATING LUNCH. CPOX AT BEDSIDE. PATIENT WITHOUT FURTHER NEEDS AT THIS TIME. CALL LIGHT AND PERSONAL BELONGINGS WITHIN REACH.
--- NOTE | 2024-08-28 12:29 | NUR ---
PT TRANSFERS TO SBA TO BSC, VOIDS, PROVIDES OWN CARLOS-CARE AND TRANSFERS BACK TO RECLINER. PT ASSISTED WITH LINE AND TUBE MANAGEMENT ONLY. NO REQUESTS, CALL LIGHT AND PERSONAL BELONGINGS IN REACH.
--- NOTE | 2024-08-28 12:45 | NUR ---
PATIENT ASSESSMENT COMPLETED. PATIENT IS ALERT AND ORIENTED X4. PATIENT IS CONTACT [facility] FOR AMBULATION DUE TO TUBES/WIRES AND PATIENT OCCASIONALLY UNSTEADY. PATIENT HAS KNOWN CARDIAC ARRYTHMIAS AND IS ON TELE #7 WITH IRREGULAR HEART TONES. PATIENT HAS STRONG PULSES IN UPPER AND LOWER EXTREMETIES AND HAS NO EDEMA. CAPILLARY REFILL IS <3 SECONDS. PATIENT IS NOT ON OXYGEN AT HOME, BUT IS CURRENTLY ON 2L NC AT 95%. CPOX AT BEDSIDE. LUNG SOUNDS ARE WITH DIMINISHED WHEEZES IN RIGHT UPPER LOBE, LEFT UPPER LOBE IS DIMINISHED, AND BILATERAL BASES ARE DMINISHED WITH CRACKLES. PATIENT DENIES SOB. PATIENT IS ON A REGULAR DIET, BUT IS SEVERLEY MALNURISHED. BOWEL TONES ARE ACTIVE IN ALL 4 QUADRANTS AND PATIENT HAS A COLOSTOMY. PATIENT DENIES ANY URINARY SYMPTOMS. PAIN IS WITHOUT PAIN AT THIS TIME. PATIENT HAS NO WOUNDS AND SKIN IS INTACT. IV IS INFUSING CONTINUOUSLY AT 100ML/HR. PATIENT WITHOUT FURTHER NEEDS AT THIS TIME. CALL LIGHT AND PERSONAL BELONGINGS WITHIN REACH.
--- NOTE | 2024-08-28 13:05 | NUR ---
FISHER DELIVERED AT THIS TIME. WARM BLANKET AND ICE WATER PROVIDED. LUNCH TRAY REMOVED PER PATIENT REQUEST. PATIENT REMAINS ON 2 L NC WITH THE CPOX AT BEDSIDE. PATIENT STATED NO FURTHER NEEDS AT THIS TIME. CALL LIGHT AND PERSONAL BELONGINGS ARE WITHIN REACH.
--- NOTE | 2024-08-28 13:48 | NUR ---
PATIENT IN BED AT THIS TIME. COP BREAKER CHARTED VITALS AND I&O'S. CALL LIGHT WITHIN REACH, NO FURTHER NEEDS AT THIS TIME.
--- NOTE | 2024-08-28 14:55 | NUR ---
PATIENT UP TO BED SIDE COMMODE. PATIENT STATES SHE IS HAVING SOME CHEST/RIB PAIN FROM COUGHING. THIS RN LEFT ROOM TO GET PAIN MEDICATION AND GIVE PATIENT SOME TIME ON COMMODE PER PATIENT REQUEST. CALL LIGHT AND PERSONAL BELONGINGS WITHIN REACH.
[2024-08-28] MEDS ORDERED: AZITHROMYCIN 500 MG VIAL ONE (14:58)
[2024-08-28] MEDS ORDERED: CEFTRIAXONE SODIUM 2 GM VIAL ONE (14:58)
--- NOTE | 2024-08-28 15:17 | NUR ---
PHARMACY CALLED TO DOUBLE CHECK COMPATABILITY. PER CLARISSE WITH PHARMACY, CEFTRIAXONE, AZITHROMYCIN, AND NS CAN ALL BE INFUSED TOGETHER.
--- NOTE | 2024-08-28 15:30 | NUR ---
PATIENT MEDICATED PER EMAR. PATIENT SITTING UP IN CHAIR WATCHING TV. THIS RN ASSISTED PATIENT WITH CONTACTING KITCHEN TO PLACE DINNER ORDER. PATIENT WITHOUT FURTHER NEEDS AT THIS TIME. CALL LIGHT AND PERSONAL BELONGINGS WITHIN REACH.
--- NOTE | 2024-08-28 16:12 | NUR ---
PATIENT SITTING UP IN CHAIR WATCHING TV. IV INFUSION COMPLETED. SECOND IV ABX STARTED. PATIENT DENIES ANY NEEDS AT THIS TIME. CALL LIGHT AND PERSONAL BELONGINGS WITHIN REACH.
--- NOTE | 2024-08-28 17:09 | NUR ---
PATIENT SITTING UP IN BED VISITING WITH FAMILY AT BEDSIDE. PATIENT DENIES WANTING THE WAFFLE MATTRESS ON BED DUE TO "IT DOESN'T HELP AND ISN'T COMFORTABLE" PATIENT STATES SHE HAS "THREE OF THEM FROM [employer] AT HOME AND I DON'T USE THEM. THEY HELPED AT FIRST, BUT NOT ANYMORE". FRESH WATER PROVIDED. PATIENT DENIES ANY FURTHER NEEDS AT THIS TIME. CALL LIGHT AND PERSONAL BELONGINGS WITHIN REACH.
--- NOTE | 2024-08-28 18:22 | NUR ---
PATIENT UP TO BED SIDE COMMODE. PATIENT WITHOUT FURTHER NEEDS AT THIS TIME. CALL LIGHT AND PERSONAL BELONGINGS WITHIN REACH. AT BEDSIDE.
--- NOTE | 2024-08-28 18:27 | NUR ---
PATIENT AMBULATED WITH CONTACT GUARD ASSIST AND WHEELCHAIR. PATIENT BOOSTED ON 3 L NC AND STAYED GREATER THAN 95%. PATIENT TOLERATED WELL. PATIENT IS NOW BACK IN THE ROOM AND SITTING ON THE EDGE OF BED. PATIENT IS NOW ON 1 L NC WITH CPOX READING 97%. PATIENT WITH NO COMPLAINTS OF SOB. PATIENT EDUCATED ON TITRATING OXYGEN DOWN TO ROOM AIR. PATIENT EXPRESSED UNDERSTANDING. PATIENT IS SITTING IN THE RECLINER AT BEDSIDE. PATIENT IS SITTING ON THE EDGE OF BED WITH THE CALL LIGHT WITHIN REACH. PATIENT STATED NO FURTHER NEEDS AT THIS TIME.
--- NOTE | 2024-08-28 18:28 | NUR ---
PATIENT SITTING ON EDGE OF BED AT THIS TIME. BOBBIN DOFFER CHARTED I&O'S AND VITALS. THIS BOBBIN DOFFER AND JULUIS BIGGS ASSISTED PATIENT ON A WALK AROUND HALLS. CALL LIGHT WITHIN REACH, NO FURTHER NEEDS AT THIS TIME.
--- NOTE | 2024-08-28 19:10 | NUR ---
REPORT RECEIVED FROM KALYAN MADRID. pt RESTING IN THE BED. BOARD UPDATED. pt DENIES ANY OTHER NEEDS AT THIS TIME. CALL LIGHT WITHIN REACH.
[2024-08-28] MEDS ORDERED: BUDESONIDE 0.5 MG/2 ML VIAL INH SCH (20:00)
--- NOTE | 2024-08-28 20:05 | NUR ---
BRIAN STATES THAT SHE GETS SHORT OF BREATH WHEN DOING HOUSEWORK OR WITH EXERTION. CURRENTLY BRIAN IS ON A 1 L NC. BRIAN WOULD BENEFIT FROM HOME OXYGEN AND A HOME NEBULIZER WITH DUONEB AND PULMICORT BID WITH ALBUTEROL Q2 PRN.
--- NOTE | 2024-08-28 20:35 | NUR ---
ASSESSMENT AND VITAL SIGNS DONE. pt TRIALED ON RA. pt DESATTED DOWN TO 86%. pt PLACED BACK ONTO 1LNC AND RECOVERED BACK TO 93%. SCHEDULED MEDS ADMINISTERED. pt DENIES ANY OTHER NEEDS AT THIS TIME. CALL LIGHT WITHIN REACH. LUNG SOUNDS ARE CLEAR.
--- NOTE | 2024-08-28 23:14 | EKG ---
[facility] [address] [place] [address] Signed Sinus rhythm with premature atrial complexes Otherwise normal ECG When compared with ECG of 23-AUG-2023 12:56, premature atrial complexes are now present ST elevation now present in Inferior leads Confirmed by Aneesh Ta MD () on 08/28/2024 11:14:39 PM Electronically Signed By: ANEESH TA MD 08/28/24 2314 PATIENT NAME: BRIAN WEAVER Electrocardiogram DATE OF : 53 PHYSICIAN: ANEESH TA MD REPORT #: [id number] REPORT IS CONFIDENTIAL AND NOT TO BE RELEASED WITHOUT AUTHORIZATION
[2024-08-29] VITALS (10 sets, daily range): BP systolic 94–116; BP diastolic 62–73
--- NOTE | 2024-08-29 00:17 | NUR ---
pt RESTING IN THE BED WITH EYES CLOSED. RR EVEN AND UNLABORED. CALL LIGHT WITHIN REACH.
--- NOTE | 2024-08-29 01:49 | NUR ---
AS400 PROGRAMMER ANALYST OBTAINED VITALS. NO NEW I&O AT THIS TIME. PT STATES NO NEEDS AND CALL LIGHT WITHIN REACH.
--- NOTE | 2024-08-29 02:08 | NUR ---
pt RESTING IN THE BED WITH EYES CLOSED. RR EVEN AND UNLABORED. CALL LIGHT WITHIN REACH.
--- NOTE | 2024-08-29 04:16 | NUR ---
pt RESTING IN THE BED WITH EYES CLOSED. RR EVEN AND UNLABORED. CALL LIGHT WITHIN REACH.
--- NOTE | 2024-08-29 04:19 | NUR ---
BRIAN IS ASLEEP. SHE HAS ASKED TO NOT BE AWOKEN IF SHE IS SLEEPING FOR BREATHING TREATMENTS.
--- NOTE | 2024-08-29 05:34 | NUR ---
ACID PURIFICATION EQUIPMENT OPERATOR AND PRIMARY RN OBTAINED VITALS AND I&O. PT STATES NO NEEDS AT THIS TIME. CALL LIGHT WITHIN REACH.
[2024-08-29 05:55] LABS: HEMATOCRIT 28.7 % (35.0-50.0); HEMOGLOBIN 9.8 g/dL (12.0-18.0); LYMPHOCYTES 5.1 % (24-44); MCH 31.9 (27-36); MCHC 34.1 g/dl (30-36); MCV 93.6 fl (81-99); MONOCYTES 3.7 % (0-12); NEUTROPHILS 91.2 % (39-80); PLATELET COUNT 219 K/uL (140-440); RBC 3.07 M/ul (4.3-5.7); RDW 13.8 (10.5-15.0)
[2024-08-29 06:12] LABS: ALBUMIN 2.2 g/dL (3.4-5.0); ALBUMIN/GLOBULIN RATIO 0.63 (1.1-2.4); ANION GAP 8.5 (7-21); BILIRUBIN, TOTAL 0.2 mg/dL (0.2-1.0); BUN/CREATININE RATIO 21.42 (6.0-28.6); CALCIUM 8.7 mg/dL (8.5-10.1); CREATININE, SERUM 0.42 mg/dL (0.55-1.02); POTASSIUM 3.5 mmol/L (3.5-5.1); PROTEIN, TOTAL 5.7 g/dL (6.4-8.2)
--- NOTE | 2024-08-29 07:15 | NUR ---
REPORT RECEIVED FROM JULIUS PARKS. PT AWAKE AND ALERT SITTING UP IN BED. 2LNC IN PLACE WITH CPOX AT BEDSIDE. PT HAS NO REQUESTS, CALL LIGHT AND PERSONAL BELONGINGS IN REACH.
--- NOTE | 2024-08-29 08:45 | NUR ---
RESPIRATORY THERAPY IN WITH PT AT THIS TIME.
--- NOTE | 2024-08-29 09:44 | NUR ---
MEDICATION ADMINISTERED, SEE AUG. ASSESSMENT COMPLETE. PT EXPRESSING GREAT RELIEF FROM BEING ON VAPOTHERM, REPORTS SHE FEELS SHE CAN BREATHE MUCH BETTER AND STATES SHE CAN FEEL "THINGS BREAKING UP IN MY CHEST". PT HAS PRODUCTIVE COUGH AND EXPECTORATING THICK, YELLOW SPUTUM. VAPOTHERM IS SET TO 25L WITH 30%O2. PT LUNG SOUNDS ARE CLEAR BUT DIMINISHED TO RUL, DIMINISHED AND COARSE TO RLL, WHEEZING AND COARSE TO SIMON/LL. CPOX AT BEDSIDE. PT RANGING FROM 92-96%, DENIES SHORTNESS OF BREATH AT THIS CURRENT TIME. TELE IN PLACE. IV TO L FOREARM FLUSHES WNL AND HAS IVF INFUSING. PT DENIES INTEREST IN BREAKFAST, STATES SHE IS NOT HUNGRY YET. REFUSES ENSURE AT THIS TIME BUT ACCEPTS COFFEE AND GATORADE. PT DENIES PAIN, DISCOMFORT, ANY NAUSEA. BOWEL TONES ARE ACTIVE IN ALL QUADRANTS. PTs ABDOMEN IS FLAT. PT REPORTS SHE MAY BE REQUESTING SOMETHING FOR HER BOWEL MOVEMENTS TODAY IF SHE DOES NOT START GOING. OSTOMY TO LLQ HAS A SCANT AMOUNT OF LIQUID BROWN STOOL IN IT. PT HAS NO REQUESTS, CALL LIGHT AND PERSONAL BELONGINGS IN REACH.
--- NOTE | 2024-08-29 10:45 | NUR ---
VISITED DURING SPIRITUAL CARE ROUNDS. PT INDICATED TIRED, BUT INTERESTED IN THERAPY ANIMAL VISIT. PT DEMEANOR IMPROVED WHEN THERAPY DOG INTRODUCED, EXPRESSED HAPPINESS, TALKED OF OWN PET. IT TECHNICAL SPECIALIST PROVIDED SUPPORTIVE PRESENCE, HOSPITALITY, PRAYER, FACILITATED INTERACTION WITH THERAPY ANIMAL. PT EXPRESSED GRATITUDE, ELIAS SOURCE OF STRENGTH.
--- NOTE | 2024-08-29 12:20 | NUR ---
LUNCH TRAY SET UP FOR PT. PT ASSISTED TO RAISE HOB TO EAT, REPORTS DIZZINESS AND MILD NAUSEA SHE ATTRIBUTES TO NOT EATING. PT ENCOURAGED TO EAT. PT REPORTS DIZZINESS UBSIDES AFTER ABOUT A MINUTE. NC IN PLACE, VAPOTHERM AT 25L 40% O2. CPOX IN PLACE AT BEDSIDE. PT IS COUGHING REGULARLY AND CONTINUES TO EXPECTORATE SPUTUM. NO OTHER COMPLAINTS OR REQUESTS AT THIS TIME, CALL LIGHT AND PERSONAL BELONGINGS IN REACH.
--- NOTE | 2024-08-29 14:35 | NUR ---
PTs SUGAR ARRIVES AND ASKS TO SPEAK TO RESPIRATORY THERAPY. JAVIER IN RT NOTIFIED AND STATES HE WILL BE DOWN SHORTLY.
[2024-08-29] MEDS ORDERED: methylPREDNISolone SOD SUCC 125 MG/2 ML VIAL IV SCH (15:00)
--- NOTE | 2024-08-29 15:00 | NUR ---
Spoke with Moriah. She denies needs. Would like a nebulizer on dc and thinks she will need 02 for home. We discussed 02 qualifiers and when those are completed. She denies other wants.
--- NOTE | 2024-08-29 15:06 | NUR ---
ANSWERED PATIENT'S CALL LIGHT WENT IN PATIENT WAS READY TO GET OFF THE BEDSIDE COMMODE. THAN DID TWO CLOCK VITALS. ASKED HER IS THERE ANYTHING ELSE YOU NEED NOT AT THIS TIME CALL LIGHT WITH IN REACH. VISITOR IN ROOM.
[2024-08-29] MEDS ORDERED: CEFTRIAXONE SODIUM 2 GM VIAL ONE (15:08)
--- NOTE | 2024-08-29 15:35 | NUR ---
MEDICATION ADMINISTERED, SEE MAR. PT RESTING IN BED AWAKE AND ALERT, REPORTS SHE IS FEELING MUCH MORE RELAXED WITH THE VAPOTHERM IN PLACE. SHE HAS A REGULAR COUGH BUT STATES SHE IS UNABLE TO EXPECTORATE MUCH. VAPOTHERM SETTINGS ARE SET AT 25L ON 40% OXYGEN. CPOX AT BEDSIDE. LUNG SOUNDS ARE CLEAR TO BUL WITH EXPIRATORY WHEEZE, BLL HAVE EXPIRATORY WHEEZE WITH FAINT CRACKLES NOTED. PT REPORTS NO PAIN OR DISCOMFORT AT THIS TIME. NO REQUESTS, CALL LIGHT AND PERSONAL BELONGINGS IN REACH. PT IS WATCHING A MOVIE.
--- NOTE | 2024-08-29 16:37 | NUR ---
PTs SUGAR RETURNS. NOTIFIED ASKED.
--- NOTE | 2024-08-29 16:59 | NUR ---
HELPED PATIENT WITH HER IV AND OTHER CORDS WHILE SHE TRANFERS FROM HER BED TO HER CHAIR. BED LINENS CHANGED.
--- NOTE | 2024-08-29 18:36 | NUR ---
PT REQUESTING HER OSTOMY BE CHANGED. ON REMOVAL OF COLOSTOMY BAG, THE PTs STOMA IS PROTRUDING MORE THAN PT IS USED TO AND APPEARS EDEMATEOUS. PT LOOKS DOWN AND BECOMES ALARMED, REPORTING THAT HER STOMA HAS NEVER LOOKED LIKE THIS OR PROTRUDED THIS MUCH. PT DENIES PAIN OF THE AREA. PT COMFORTED, THERAPEUTIC COMMUNICATION PROVIDED AND SECOND NURSE, LISANDRO, CALLED FOR SECOND OPINION. MD NOTIFIED OF CHANGE IN PTs STOMA. MD STATES HE WILL TAKE A LOOK. SKIN TO CARLOS-STOMA IS CLEAN, FREE OF REDNESS OR BREAKDOWN. SKIN BARRIER SPRAY APPLIED TO CARLOS-STOMA, FRESH OSTOMA APPLIED AT A LARGER SIZE THAN THE STOMA TO PREVENT APPLYING PRESSURE. PT TEARFUL, CONCERNED AT HER STOMA. FURTHER THERAPEUTIC COMMUNICATION PROVIDED. MARCELA PATO REMAINS IN ROOM AT THIS TIME.
--- NOTE | 2024-08-29 19:23 | NUR ---
RECEIVED REPORT. MD IN ROOM WITH PT TO ASSESS PROTRUDING OSTOMY. OSTOMY PROTRUDING ABOUT 3 INCHES FROM ABDOMEN, PINK-RED AND MOIST. NO PAIN NOTED, THOUGH PT ANXIOUS ABOUT OSTOMY. CALL LIGHT IN REACH, NO OTHER NEEDS PRESENTLY
--- NOTE | 2024-08-29 20:25 | NUR ---
VITALS, ASSESSMENT, AND EVENING MEDS. ORDERS TO GENTLY REDUCE STOMA IF CAUSING DISCOMFORT, PT DECLINES CURRENTLY SAYING SHE DOESN'T WANT ANYONE TO TOUCH IT FOR NOW. PT ON VAPOTHERM, SATTING WELL WITH INTERMITTENT COUGHING. CALL LIGHT IN REACH, PT RESTING IN BED.
--- NOTE | 2024-08-29 20:42 | NUR ---
BRIAN IS AWAKE IN BED ON A VAPOTHERM 25L FIO2 30%. HOB IS AT 12 DEGREES. BRIAN IS ABLE TO USE THE CORNET LEVEL 5 W/O DIFFICULTY OR INCREASED S/S OF RESPIRATORY DISTRESS.
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
--- NOTE | 2024-08-29 23:32 | NUR ---
PT RESTING IN BED, AUDIBLE BREATHING WITH SP02 OF 92%. CALL LIGHT IN REACH
[2024-08-30] VITALS (9 sets, daily range): BP systolic 96–121; BP diastolic 56–78
--- NOTE | 2024-08-30 00:14 | NUR ---
RESPONDED TO BEEPING IV, RESTARTED. PT AWAKE, NO NEEDS PRESENTLY. CALL LIGHT IN REACH
--- NOTE | 2024-08-30 01:32 | NUR ---
RT ADJUSTED VAPOTHERM FOR OOB, PT REPORTING IMPROVED SOB. PT NOW IN BED, SATTING 93%. CALL RECEIVED FROM CCU, PT LEADS OFF. LITHOGRAPHIC PHOTOGRAPHER APPRENTICE REPLACED LEADS. CALL LIGHT IN REACH
--- NOTE | 2024-08-30 02:32 | NUR ---
RESPONDED TO BEEPING IV. PT NOTES SOB MUCH IMPROVED FROM EARLIER. RESTARTED IV AFTER PT STRAIGHTENED ARM. CALL LIGHT IN REACH, NO OTHER NEEDS PRESENTLY
--- NOTE | 2024-08-30 03:43 | NUR ---
PT IN BED WITH EYES CLOSED, SPO2 90%. CALL LGT IN REACH ON BED
--- NOTE | 2024-08-30 04:19 | NUR ---
CALL LIGHT ANSWERED. PT NEEDED TO USE BATH ROOM. DISK OPERATOR ASSISTED PT TO BSC. PT VOIDED AND ASSISTED BACK TO BED. VITALS AND I& OBTAINED AND DOCUMENTED. PT STATES NO FURTHER NEEDS AT THIS TIME. CALL LIGHT WITHIN REACH.
--- NOTE | 2024-08-30 05:11 | NUR ---
TELE LEADS OFF. PT AWAKE IN BED. TELEMONITOR ATTACHED APPROPRIATELY, BUT NO CENTRAL MONITORING. ALSO ALARMING FOR TACHYCARDIA, THOUGH PRESENT HR IS 80S ON TELEMONITOR. REPLACED BATTERY, MONITOR NOW WITH CENTRAL MONITORING. HELPED PT ADJUST IN BED, GIVEN WARM BLANKETS. NO OTHER NEEDS PRESENTLY, CALL LIGHT IN REACH
--- NOTE | 2024-08-30 05:28 | NUR ---
A&OX4, MONITORED ON TELEMONITOR 7 OVERNIGHT. PT FREQUENTLY C/O SOB, ESPECIALLY ON EXERTION. ONE EPISODE OF DESAT TO 74% WHEN UP TO THE COMMODE. REPORTS VAPOTHERM HELPS GREATLY WITH SOB, RT ADJUSTED SETTINGS A FEW TIMES OVERNIGHT. COLOSTOMY NEWLY PROTRUDING APPROX 2-3INCHES FROM ABDOMEN, THOUGH PINK AND WELL APPEARING. DENIES PAIN. MD ASSESSED AT BEGINNING OF SHIFT, LIKELY D/T COUGHING AND NO ACTION NEEDED. PT 1PA WITH FWW. ADVISED TO PRE-OXYGENATE PRIOR TO AMBULATING. CALL [facility] IN REACH
[2024-08-30 05:29] LABS: HEMATOCRIT 29.1 % (35.0-50.0); HEMOGLOBIN 9.9 g/dL (12.0-18.0); LYMPHOCYTES 6.5 % (24-44); MCH 31.5 (27-36); MCHC 34.1 g/dl (30-36); MCV 92.3 fl (81-99); MONOCYTES 7.2 % (0-12); NEUTROPHILS 86.3 % (39-80); PLATELET COUNT 243 K/uL (140-440); RBC 3.15 M/ul (4.3-5.7); RDW 13.5 (10.5-15.0)
[2024-08-30 05:51] LABS: ALBUMIN 2.4 g/dL (3.4-5.0); ALBUMIN/GLOBULIN RATIO 0.75 (1.1-2.4); ANION GAP 7.2 (7-21); BILIRUBIN, TOTAL 0.2 mg/dL (0.2-1.0); BUN/CREATININE RATIO 21.42 (6.0-28.6); CALCIUM 8.7 mg/dL (8.5-10.1); CREATININE, SERUM 0.42 mg/dL (0.55-1.02); POTASSIUM 3.2 mmol/L (3.5-5.1); PROTEIN, TOTAL 5.6 g/dL (6.4-8.2)
--- NOTE | 2024-08-30 07:11 | NUR ---
REPORT RECEIVED FROM JULIUS HAM. PT RESTING IN BED WITH EYES CLOSED, MOUTH OPEN, RR EVEN AND UNLABORED. VAPOTHERM HI-LENA NC IN PLACE AT 25L/30% O2, CPOX AT BEDSIDE. CALL LIGHT AND PERSONAL BELONGINGS IN REACH.
--- NOTE | 2024-08-30 07:52 | NUR ---
PATIENT WAS IN BED AT THIS TIME AND NEEDED ASSISTANCE TO THE BEDSIDE COMMODE, SHE VOIDED THEN ANNE-MARIE STARTED TO PANIC CAUSE SHE SAID SHE WAS HAVING A HARD TIME BREATHING. RADIOISOTOPE TECHNOLOGIST ASSISTED HER BACK TO BED, GOT HER COVERED UP AND TIDYED HER ROOM A BIT. SHE WAS FEELING MORE ANXIOUS AND STRESSED SO I NOTIFIED RN/CHARGE IRMA. RT WAS WALKING IN RIGHT I WAS COMING OUT OF HER ROOM TO BRING HER A BREATHING TREATMENT. CALL LIGHT WITH IN REACH AND NOTHING ELSE NEEDED AT THIS TIME.
--- NOTE | 2024-08-30 08:05 | NUR ---
PT EXPERIENCES AIR HUNGER DURING TRANSFER FROM BSC BACK TO BED. KEVIN FROM RT IN ROOM ADMINISTERING BREATHING TREATMENTS, PT HAVING ANXIETY R/T TO HER BREATHING. THERAPEUTIC COMMUNICATION PROVIDED BY THIS RN AND KEVIN, RT. PT RECOVERS AFTER ABOUT FIVE MINUTES. HI-LENA NASAL CANNULA IN PLACE ALONG WITH BREATHING TREATMENT. KEVIN REMAINS IN ROOM.
[2024-08-30] MEDS ORDERED: MAGNESIUM SULFATE 2 GM/50 ML BAG IV SCH (09:00)
[2024-08-30] MEDS ORDERED: POTASSIUM CHLORIDE 40 MEQ,LIDOCAINE HCL 1% 40 MG in DEXTROSE 5% 250 ML IV ONE (09:00)
--- NOTE | 2024-08-30 09:08 | NUR ---
PT CALL LIGHT ANSWERED. PT REQ COFFEE AND WARM BLANKETS. WARM BLANKET AND COFFEE PROVIDED. PT DENIES FURTHER NEEDS, CALL LIGHT IN REACH.
--- NOTE | 2024-08-30 09:21 | NUR ---
REVIEWED CXR, SATINDER SALINE LOCKED AT THIS TIME. RT WAS JUST WORKING WITH PATIENT, CPOX IN PLACE. DENIES ANY NEEDS AT THIS TIME.
--- NOTE | 2024-08-30 09:55 | NUR ---
MEDICATION ADMINISTERED, SEE AUG. ASSESSMENT COMPLETE. PT RESTING IN BED WITH HI-LENA NC IN PLACE, VAPOTHERM SETTINGS 25L AT 30% O2. CPOX AT BEDSIDE. PT DISCUSSES CONCERN ABOUT USING THE RESTROOM SHE IS FEARFUL OF BECOMING SHORT OF BREATH AGAIN. THERAPEUTIC COMMUNICATION, EDUCATION, AND PLAN PROVIDED FOR USING BSC. PT VERBALIZES UNDERSTANDING, AGREEABLE TO PLAN OF HYPERVENTILATION PRIOR TO TRANSFER PREVIOUSLY DISCUSSED WITH THIS RN AND RT KEVIN. PT LUNG SOUNDS HAVE WHEEZING THROUGHOUT, DIMINISHED IN THE BILAT BASES. LEFT UPPER AND LOWER LOBE ARE COARSE WITH WHEEZING. PT DENIES SHORTNESS OF BREATH WHILE RESTING IN BED WITH HOB ELEVATED. HEART SOUNDS HEARD WNL. BOWEL TONES ARE ACTIVE IN ALL QUADRANTS. STOMA REMAINS PERISCOPED AND RED IN COLOUR, BROWN LIQUID STOOL NOTED IN COLOSTOMY BAG. PT DENIES NAUSEA OR STOMACH UPSET. PT REMAINS IN BED AT THIS TIME, DRINKING HER COFFEE. BLINDS RAISED SLIGHTLY TO ALLOW NATURAL LIGHT. PT HAS NO REQUESTS AT THIS TIME, CALL LIGHT AND PERSONAL BELONGINGS IN REACH.
--- NOTE | 2024-08-30 11:00 | NUR ---
Spoke with Moriah. She cont. very frail and easy becomes sob. signed RX for a nebulizer. Pt may need 02 on dc. Discussed with pt CardioPulm program in [place]. This was recommended in 8:30 meeting. Pt declines. She does not want to drive to [place]. Dr. Olivas updated.
[2024-08-30] MEDS ORDERED: FUROSEMIDE 20 MG/2 ML VIAL IV ONE (11:15)
--- NOTE | 2024-08-30 11:36 | NUR ---
MEDICATION ADMINISTERED, SEE BHANU. DANIEL FROM CASE MANAGEMENT PRESENT TALKING WITH PT. DANIEL REMAINS IN ROOM AT THIS TIME. PT UP IN RECLINER, JANIE VAPOTHERM IN PLACE WITH CPOX AT CHAIRSIDE.
--- NOTE | 2024-08-30 12:05 | NUR ---
PT DAUGHTER BRITNEY CALLED FOR UPDATED. UPDATED GIVEN REGARDING CXR, LASIX AND RT TREATMENTS, NO OTHER CONCERNS. REPORTS HAD NOT HEARD FROM PT SINCE YESTERDAY SO WAS INQUIRING ON UPDATE. OFFERED TO TRANSFER INTO THE ROOM, DEFERRED PATIENT COULD BE SLEEPING.
--- NOTE | 2024-08-30 12:20 | NUR ---
PT REQUESTING TO USE THE BEDPAN. PT ASSISTED TO SIT ON BED JETT IN THE RECLINER. PT VOIDS LARGE AMOUNT OF CLEAR, DILUTE URINE. CARLOS-CARE PROVIDED. PT HAS BRIEF WITH LINER BENEATH HER. ATTEMPTING PUREWICK AGAIN. PUREWICK PLACED. PT HAS IV SUPPLEMENTS INFUSING TO HER L FOREARM WNL. NO COMPLAINTS OF PAIN OR DISCOMFORT AT THIS TIME. CALL LIGHT AND PERSONAL BELONGINGS IN REACH.
--- NOTE | 2024-08-30 12:35 | NUR ---
BEFORE I WENT TO LUNCH ANSWERED PATIENT'S CALL LIGHT. WHEN I GOT IN THERE PATIENT ALREADY HAD AN ACCIDENT IN THE CHAIR. CLEANED HER UP AND REPLACED ALL WITH CLEAN LINENS AND WASHED THE CHAIR WITH HOBSON WIPES. WHILE PATIENT WAS IN HER CHAIR SHE WAS VERY HELPFUL LIFTING HER HIPS. I ALSO ORDERED HER DINNER. ALSO PUT A CLEAN GOWN ON.
--- NOTE | 2024-08-30 13:45 | NUR ---
PT IN RECLINER, REQUESTING TO GO BACK TO BED. URINATED, PUREWICK WAS INPLACE BUT ATTENDS SATURATED. GOWN CHANGED, PT ASSISTED BACK TO BED, SATS DDROPPED TO 86% WITH VAPOTHERM IN PLACE AT 40LPM. SATS STABELIZED WHEN BACK IN BED, PT REQUESTING TO TURN DOWN FLOW, TURNED DOWN TO 35LPM. ATTENDS IN PLACE. CALL LIGHT WITHIN REACH, BEDSIDE TABLE CLEARED OFF AND PLACED BACK NEXT TO PATIENT AGAIN. ALL PT CARE NEEDS MET AT THIS TIME.
--- NOTE | 2024-08-30 13:48 | EKG ---
[facility] [address] [place] [address] Signed Normal sinus rhythm with sinus arrhythmia Normal ECG When compared with ECG of 27-AUG-2024 15:03, premature atrial complexes are no longer present Confirmed by Aneesh Ta MD () on 08/30/2024 1:48:22 PM Electronically Signed By: ANEESH TA MD 08/30/24 1348 PATIENT NAME: BRIAN WEAVER Electrocardiogram DATE OF : 53 PHYSICIAN: ANEESH TA MD REPORT #: [id number] REPORT IS CONFIDENTIAL AND NOT TO BE RELEASED WITHOUT AUTHORIZATION
--- NOTE | 2024-08-30 13:55 | NUR ---
PT IS IN BED BEING ASSISTED BY MARCELA WHYTE. PUREWICK HAS BEEN PREVIOUSLY REMOVED, PT REQUESTING TO TRY PUREWICK AGAIN. CARLOS-CARE PROVIDED, PUREWICK PLACED. IVs COMPLETED, IV TO L FOREARM FLUSHED AND SALINE LOCKED. PT REQUESTING THAT SHE NOT BE DISTURBED FOR AWHILE, SHE WOULD LIKE SOME SLEEP. 'DO NOT DISTURB' SIGN PLACED ON DOOR. NO OTHER REQUESTS AT THIS TIME, CALL LIGHT AND PERSONAL BELONGINGS IN REACH.
--- NOTE | 2024-08-30 15:21 | NUR ---
PUREWICK INEFFECTIVE. PUREWICK REMOVED, CARLOS-CARE PROVIDED, FRESH BRIEF PLACED. KEVIN, RESPIRATORY THERAPY AND KRIS, PHYSICAL THERAPY ARE BOTH PRESENT TO WORK WITH PT FOR PHYSICAL THERAPY. FRESH GRIPPY SOCKS PLACED ON PT. THIS RN, RT, AND PHYISCAL THERAPY REMAIN IN ROOM AT THIS TIME.
[2024-08-30] MEDS ORDERED: CEFTRIAXONE SODIUM 2 GM VIAL ONE (15:38)
--- NOTE | 2024-08-30 16:07 | NUR ---
ASSESSMENT COMPLETE. PT IS BACK IN BED AFTER AMBULATING HALLS WITH PHYSICAL THERAPY AND RESPIRATORY THERAPY. IV ABX INFUSING TO L IV, PT REPORTS SOME BURNING AT THE SITE FOLLOWING POTASSIUM ADMINISTRATION EARLIER. ICE PACK SUPPLIED, PT REPORTS THE BURNING HAS QUICKLY SUBSIDED. LUNG SOUNDS CLEAR BUT DIMINISHED TO BUL, WITH MILD EXPIRATORY WHEEZING IN BLL. PT IS ON 5L 30% O2 BY OXYMASK AND REPORTS NO SHORTNESS OF BREATH, CHEST TIGHTNESS, OR DISCOMFORT. PT DENIES PAIN, ENDORSES MILD NAUSEA AND BELIEVES THIS IS DUE TO LACK OF EATING. PT REQUESTS HER MUFFIN TO SNACK ON - PROVIDED. MD NORWOOD ARRIVES TO SEE PT. GIVES VERBAL ORDER FOR PO TRAZADONE AT HS - PLACED. PTs ARRIVES TO VISIT PT. PTs UPDATED ON PT STATUS, QUESTIONS ANSWERED AND CONCERNS ADDRESSED. PT REQUESTING HER DOOR CLOSED, 'DO NOT DISTURB' SIGN REMAINS IN PLACE. PT HAS NO OTHER REQUESTS AT THIS TIME, CALL LIGHT AND PERSONAL BELONGINGS IN REACH.
--- NOTE | 2024-08-30 17:32 | NUR ---
Update from PT. Recommending CardioPulm program. Pt declined. PT recommending HH for this pt.
--- NOTE | 2024-08-30 18:43 | NUR ---
OSTOMY POUCH CHANGED PER PT REQUEST. ATTEMPTED GENTLE REDUCTION OF OSTOMY, UNSUCCESSFUL. OSTOMY CLEANED OF SMALL SOFT/LIQUID DARK BROWN STOOL. PT REPORTS SOME TENDERNESS TO ABDOMEN BENEATH THE OSTOMY SITE, DENIES ANY PAIN OF THE OSTOMY ITSELF. DR NI ARRIVES JUST WE ARE COMPLETING CARE. DR NI GIVES ORDERS TO DRESS THE OSTOMY IN CANE SUGAR - SIX PACKS APPLIED TO PTs OSTOMY AND OSTOMY POUCH REAPPLIED. PT ALSO IS INCONTINENT OF URINE. CARLOS-CARE PROVIDED, NEW BRIEF APPLIED. PT HAS BLANCHABLE REDNESS TO HER SACRUM. BARRIER SPRAY APPLIED AND ALLEVYN PLACED. FRESH ICE WATER SUPPLIED. PT HAS IN ROOM THROUGHOUT ENCOUNTER SHE WANTED HIM TO SEE HER OSTOMY AND STOMA. PT HAS NO OTHER REQUESTS, CALL LIGHT AND PERSONAL BELONGINGS IN REACH, REMAINS IN ROOM.
--- NOTE | 2024-08-30 19:15 | NUR ---
RECEIVED REPORT. PT RESTING IN BED WITH AT BEDSIDE. PT REQUESTS MEDS, INCLUDING TRAZADONE AND MELATONIN, AT 1999, WOULD LIKE TO SLEEP TONIGHT. REPORTS BREATHING GREATLY IMPROVED AFTER LASIX. CALL LIGHT IN REACH
--- NOTE | 2024-08-30 20:39 | NUR ---
VITALS, ASSESSMENT, EVENING MEDS. PT REQUESTS TRAZADONE AND MELATONIN FOR SLEEP, STATES SHE HAS NOT HAD A GOOD REST SINCE LAST MONDAY. ADJUSTED IN BED AND CHANGED BRIEF. AT BEDSIDE, THOUGH WILL GO HOME TONIGHT. CALL LIGHT IN REACH
[2024-08-30] MEDS ORDERED: TRAZODONE HCL 50 MG TAB PO SCH (21:00)
--- NOTE | 2024-08-30 22:17 | NUR ---
PT RESTING IN BED WITH EYES CLOSED, SPO2 AT 93%. OBSERVED RISE AND FALL OF CHEST. CALL IGHT IN REACH
[2024-08-31] VITALS (10 sets, daily range): BP systolic 97–112; BP diastolic 50–69
--- NOTE | 2024-08-31 00:40 | NUR ---
PT RESTING IN BED WITH EYES CLOSED, SPO2 92%, OOBSERVED RISE AND FALL OF CHEST, CALL LIGHT IN REACH
--- NOTE | 2024-08-31 01:33 | NUR ---
USED EQUIPMENT SALES REPRESENTATIVE OBTAINED VITALS AND I&O. PUREWICK CANNISTER EMPTIED. PT STATES NO NEEDS AT THIS TIME. CALL LIGHT WITHIN REACH.
--- NOTE | 2024-08-31 02:16 | NUR ---
PT RESTING WITH EYES CLOSED, RISE AND FALL OF CHEST NOTED. CALL LIGHT IN REACH
--- NOTE | 2024-08-31 03:56 | NUR ---
PT RESTING IN BED WITH EYES CLOSED, AUDIBLE BREATHING. CALL LIGHT IN REACH
[2024-08-31 05:13] LABS: BASOPHILS 0.1 % (0-2); HEMATOCRIT 32.6 % (35.0-50.0); LYMPHOCYTES 8.8 % (24-44); MCH 30.9 (27-36); MCHC 33.7 g/dl (30-36); MCV 91.6 fl (81-99); MONOCYTES 9.3 % (0-12); NEUTROPHILS 81.8 % (39-80); PLATELET COUNT 294 K/uL (140-440); RBC 3.56 M/ul (4.3-5.7); RDW 13.2 (10.5-15.0)
[2024-08-31 05:33] LABS: ALBUMIN 2.4 g/dL (3.4-5.0); ALBUMIN/GLOBULIN RATIO 0.77 (1.1-2.4); BILIRUBIN, TOTAL 0.2 mg/dL (0.2-1.0); BUN/CREATININE RATIO 23.07 (6.0-28.6); CALCIUM 8.7 mg/dL (8.5-10.1); CREATININE, SERUM 0.39 mg/dL (0.55-1.02); POTASSIUM 3.6 mmol/L (3.5-5.1); PROTEIN, TOTAL 5.5 g/dL (6.4-8.2)
--- NOTE | 2024-08-31 05:42 | NUR ---
VITALS, ASSISTED CHANGING PT BRIEF AND CHUX PAD. PT REQUESTS COFFEE IF AVAILABLE. NO OTHER NEEDS AT PRESENT, CALL LIGHT IN REACH
[2024-08-31 05:49] LABS: ANION GAP 0.6 (7-21)
--- NOTE | 2024-08-31 06:10 | NUR ---
PT SLEPT SOUNDLY FOR MUCH OF SHIFT AFTER RECEIVED MELATONIN AND TRAZADONE PER REQUEST. WEANED FROM 3L TO 2L OXYMASK, AND WOB DRAMATICALLY IMPROVED FROM LAST NIGHT PT INCONTINENT OF URINE X1 AFTER RECEIVING LASIX DURING DAY SHIFT. CALL LIGHT IN REACH
--- NOTE | 2024-08-31 07:55 | NUR ---
Pt stated earlier she wanted to sleep. resting at this time, eyes closed, Oxymask in place, no s/sx distress.
[2024-08-31] MEDS ORDERED: BUDESONIDE 0.5 MG/2 ML VIAL INH SCH (08:00)
[2024-08-31] MEDS ORDERED: ALBUTEROL/IPRATROPIUM 3 ML NEB INH SCH (08:00)
[2024-08-31] MEDS ORDERED: acetaZOLAMIDE 250 MG TAB PO ONE (08:15)
[2024-08-31] MEDS ORDERED: predniSONE 20 MG TAB PO SCH (09:00)
--- NOTE | 2024-08-31 09:33 | NUR ---
PER , OKAY TO DISCONTINUE TELEMETRY. CCU NOTIFIED. PRIMARY RN NOTIFIED.
--- NOTE | 2024-08-31 09:42 | NUR ---
Pt sitting up position in bed. O2 via Oxymask in place, no sob with exertion noted. tele dc'd as per MD. Pt watching tv, stated to wait a little longer for assessments as she still tired but feeling better. PT asked to wait too. no c/o pain, no s/sx distress notes, smiling, better affect
--- NOTE | 2024-08-31 10:25 | NUR ---
RECIEVED HAND OFF REPORT FROM JULIUS ACEVES. PT AWAKE IN ROOM, DENIES NEEDS AT THIS TIME. CALL LIGHT IN REACH.
[2024-08-31] MEDS ORDERED: CEFTRIAXONE SODIUM 2 GM VIAL ONE (16:22)
--- NOTE | 2024-08-31 17:01 | NUR ---
in room to adiminister abx. pt requested ostomy bag to be changed. this rn changed bag, cleansed, barrier spray appplied, ostomy secured. pt satisfied. denies needs at this time. call light in reach.
--- NOTE | 2024-08-31 19:00 | NUR ---
OSTOMY BAG CHANGED. MEASURED PER PROTRUSION FOR COMFORTABLE FIT. STOMA RED, MOIST. PT PLEASED WITH CHANGE AND FIT.
--- NOTE | 2024-08-31 19:38 | NUR ---
RECEIVED REPORT. PT RESTING IN BED, TALKING WITH IN ROOM. NO NEEDS AT THIS TIME, CALL LIGHT IN REACH
--- NOTE | 2024-08-31 20:35 | NUR ---
VITALS, ASSESSMENT, I&OS. CHANGED BED LINENS AT REQUEST. GIVEN EVENING MEDS INCLUDING TRAZADONE AND MELATONIN, PT WOULD LIKE TO SLEEP MUCH POSSIBLE TONIGHT. SUPPORTIVE AT BEDSIDE, CALL LIGHT IN REACH
--- NOTE | 2024-08-31 21:40 | NUR ---
BRIAN WOULD BENEFIT FROM A HOME NEBULIZER WITH DUONEB AND PULMICORT BID AND ALBUTEROL PRN
--- NOTE | 2024-08-31 22:56 | NUR ---
PT RESTING IN BED, SPO2 94%, BREATHING AUDIBLE. CALL LIIGHT IN REACH
--- NOTE | 2024-09-01 01:26 | NUR ---
PT RESTING IN BED, SPO2 94%. RISE AND FALL OF CHEST NOTED. CALL LIGHT IN REACH
--- NOTE | 2024-09-01 02:51 | NUR ---
PT IN BED WITH EYES CLOSED, SP02 96%. CALL LIGHT INR EACH
[2024-09-01 05:17] LABS: BASOPHILS 0.1 % (0-2); HEMATOCRIT 33.1 % (35.0-50.0); HEMOGLOBIN 11.3 g/dL (12.0-18.0); LYMPHOCYTES 10.2 % (24-44); MCV 91.2 fl (81-99); MONOCYTES 5.6 % (0-12); NEUTROPHILS 84.1 % (39-80); PLATELET COUNT 338 K/uL (140-440); RBC 3.63 M/ul (4.3-5.7); RDW 13.5 (10.5-15.0)
[2024-09-01 05:27] LABS: ANION GAP 4.7 (7-21); BUN/CREATININE RATIO 28.2 (6.0-28.6); CALCIUM 8.5 mg/dL (8.5-10.1); CREATININE, SERUM 0.39 mg/dL (0.55-1.02); MAGNESIUM 1.9 mg/dL (1.8-2.4); POTASSIUM 3.7 mmol/L (3.5-5.1)
[2024-09-01 05:47] VITALS: BP 116/69
--- NOTE | 2024-09-01 05:48 | NUR ---
VITALS, CHANGED LINEN. ASSISTED PT TO CHAIR AND DELIVERED COFFEE. CALL LIGHT IN REACH
--- NOTE | 2024-09-01 07:15 | NUR ---
RECIEVED SHIFT REPORT FROM JULIUS HAM. PT IS AWAKE IN RECLINER, DENIES NEEDS. CALL LIGHT IN REACH.
--- NOTE | 2024-09-01 08:45 | NUR ---
MORNING ASSESSMENT COMPLETE. PT SITTING UP IN RECLINER, BREAKFAST SET UP. THIS RN ADMINSITERING MEDICATIONS. LUNG SOUNDS DIM THROUGOUT. DENIES SOB OR PAIN. CPOX SPO2 91% ON 2L NC. DENIES NEEDS AT THIS TIME. CALL LIGHT IN REACH.
[2024-09-01 09:19] VITALS: BP 100/66
[2024-09-01 09:20] VITALS: BP 100/66
--- NOTE | 2024-09-01 09:31 | NUR ---
PATIENT ASSISTED TO BEDSIDE COMODE. VOID FOR 350. VITALS OBTAINED, I'S AND O'S OBTAINED. NO FURTHER NEEDS. PATIENT RESTING IN RECLINER. NO FURTHER NEEDS.
[2024-09-01] MEDS ORDERED: IPRAT-ALBUT 0.5-3 ML INH (11:07)
[2024-09-01] MEDS ORDERED: BUDESONIDE0.5 MG/2 M INH (11:08)
[2024-09-01] MEDS ORDERED: TRAZODONE HCL50 MG PO (11:08)
[2024-09-01] MEDS ORDERED: PREDNISONE20 MG PO ×2 (11:09→11:11)
[2024-09-01] MEDS ORDERED: PREDNISONE10 MG PO (11:12)
--- NOTE | 2024-09-01 11:43 | NUR ---
PT AWAKE IN ROOM, SITTING IN RECLINER. DENIES NEEDS. CALL LIGHT IN REACH
--- NOTE | 2024-09-01 12:30 | CONS ---
[facility] [address] [place], [place] [address] Signed DATE OF CONSULTATION: 08/29/2024 REQUESTING PHYSICIAN: Dr. Olivas. PROBLEM: Prolapsed left lower quadrant end colostomy. HISTORY: This 69-year-old white woman is well known to me from the past. She underwent sigmoid resection by me in August of 2023 for asymptomatic sigmoid, colocutaneous fistula and perforated diverticulitis with retroperitoneal abscess drainage on July 23, 2023. The patient has impressive cachexia as a baseline, but has been improving over time with a normal prealbumin most recently. The patient continues to smoke unfortunately and is highly nicotine dependent and has been affected by her longstanding smoking in many different ways. She was admitted recently under the service of Dr. Olivas for what appeared to be a pneumonia. She has been treated since her admission on August 26 with IV antibiotics and supportive care. The patient has an end-colostomy ultimately to be taken down once she achieved a reasonable level of health and nutritional status. Her admission was undertaken on the basis of pneumonia. She has an underlying history of COPD and baseline poor exercise tolerance. Evaluation on this admission showed a complete left-sided opacities and long-standing COPD changes as well. I paid a social visit to her noting that she was in the hospital on August 27. Of note, her end colostomy in the left lower abdomen has been functioning quite well. This evening, she had a concern and significant anxiety over finding of a proboscoid appearing end colostomy. Consultation was undertaken on that basis. In general, she is feeling better now. She had no significant pain with the prolapsing colostomy. Stool function has been good. PHYSICAL EXAMINATION: GENERAL: A very thin white woman who is anxious as is common with her. VITAL SIGNS: Temperature 97.5, pulse 86, blood pressure 101/64. NECK: Trachea is midline. CHEST: Clear at this time. She has high-flow oxygen in place. ABDOMEN: Soft and nontender. A pain can completely viable end colostomy is noted with a proboscoid appearance, which is easily reduced. Electronically Signed By: MARCELLA NI MD 09/01/24 1230 PATIENT NAME: BRIAN WEAVER CONSULTATION DATE OF : 53 REPORT #: [id number] PHYSICIAN: MARCELLA NI MD PCP: MARCELLA NI MD REPORT IS CONFIDENTIAL AND NOT TO BE RELEASED WITHOUT AUTHORIZATION [facility] [address] [place], [place] [address] Signed EXTREMITIES: Cachectic changes. LABORATORY STUDIES: Today showed a white count of 9.0, hematocrit 28.7, platelets 219,000 Chem profile, which is essentially normal and an albumin of 2.2. Serologic test was negative for influenza or coronavirus or RSV. ASSESSMENT: The patient has a prolapsing end colostomy almost certainly related to her persistent cough related to upper respiratory infection prompting this admission. The prolapse is very easily reducible. This is completely viable showing no sign of ischemia and ostomy function is reasonable. I reduced the prolapsing and colostomy without problem. I advised the patient to avoid anxiety regarding this problem and does not need surgical revision at this time. Our long-term goal was to provide takedown of the colostomy recalled. This is not a permanent end-colostomy. I discussed this with Dr. Olivas as well. I will maintain contact on a daily basis during the course of her hospitalization for pneumonia and will be available for reassurance and intervention should the need arise regarding the colostomy at this time. MD MEAGHAN To/ADOREL /[id number] cc: ANEESH OLIVAS MD Copies: ~ Electronically Signed By: MARCELLA NI MD 09/01/24 1230 PATIENT NAME: BRIAN WEAVER CONSULTATION DATE OF : 53 REPORT #: [id number] PHYSICIAN: MARCELLA NI MD PCP: MARCELLA NI MD REPORT IS CONFIDENTIAL AND NOT TO BE RELEASED WITHOUT AUTHORIZATION
[2024-09-01 13:16] VITALS: BP 102/73
[2024-09-01 14:03] VITALS: BP 100/67
== END 2024-09-01 14:16 | disposition home or self-care (01) | DRG 871 ==
LOC: ED 15:15 → CCU 18:29 → MS 08-28 12:05
PROVIDERS: Emergency Medicine; Student in an Organized Health Care Education/Training Program; ADMIT Family Medicine; ATTEND Family Medicine
PROC: 3E03329 Introduction of Other Anti-infective into Peripheral Vein, Percutaneous Approach (ICD-10-PCS; principal; 2024-08-26)
PROC: 3E033XZ Introduction of Vasopressor into Peripheral Vein, Percutaneous Approach (ICD-10-PCS; 2024-08-26)
DX: A41.9 Sepsis, unspecified organism (principal); E43 Unspecified severe protein-calorie malnutrition; J18.9 Pneumonia, unspecified organism; J96.01 Acute respiratory failure with hypoxia; J44.1 Chronic obstructive pulmonary disease with (acute) exacerbation; E87.3 Alkalosis; Z68.1 Body mass index [BMI] 19.9 or less, adult; I48.92 Unspecified atrial flutter; J44.0 Chronic obstructive pulmonary disease with (acute) lower respiratory infection; E87.20 Acidosis, unspecified; K94.09 Other complications of colostomy; F17.210 Nicotine dependence, cigarettes, uncomplicated; R65.20 Severe sepsis without septic shock; E83.42 Hypomagnesemia; E87.6 Hypokalemia; K63.4 Enteroptosis; F41.9 Anxiety disorder, unspecified; R91.1 Solitary pulmonary nodule; Z88.8 Allergy status to other drugs, medicaments and biological substances; Z88.0 Allergy status to penicillin; Z88.1 Allergy status to other antibiotic agents; Z90.710 Acquired absence of both cervix and uterus; Z98.890 Other specified postprocedural states; Z87.19 Personal history of other diseases of the digestive system; Z90.49 Acquired absence of other specified parts of digestive tract
CPT/HCPCS: 36415; 71045; 71260; 80048; 80053; 83605; 83735; 83880; 84100; 84484; 85025; 87040; 87502; 93005; 93010; 94640; 94668; 94761; 94762; 94799; 97116; 97161; 97165; 97530; 99285-25; 99406; A9270; J0456; J0696; J1650; J1940; J2405; J2919; J3475; J3480; J3490; J7030; J7060; J7512; Q9967; U0002